=== PATIENT | female | born 1960 | race Caucasian/White ===

== ENCOUNTER → 2016-10-01 | Outpatient (CLI) | payer MEDICARE ==
--- NOTE | 2016-10-02 09:35 | MAM ---
History: Well woman exam. Date of exam: 10/01/2016 Services provided: Bilateral full field digital screening mammography. CAD, the images were reviewed with R2 computer aided detection. FINDINGS: Glandular tissue is scattered glandular contour. Study is compared with exam from 2015. Patient has definitely benign and scattered calcifications bilaterally, grossly stable since the more remote study. No architectural distortion or dominant mass. No new clustered microcalcifications. IMPRESSION: Benign exam Recommendation: Routine annual mammography BIRAD CATEGORY: 2 BENIGN Electronically signed by: Rain Cortés MD 10/02/2016 9:34 AM CDT
== END ==
LOC: MAMMO 14:00
PROVIDERS: ATTEND Nurse Practitioner Family
DX: Z12.31 Encounter for screening mammogram for malignant neoplasm of breast (principal)

== ENCOUNTER → 2016-10-18 | Outpatient (CLI) | payer MEDICARE | END | disposition home or self-care (01) | LOC: YCFC.O 14:31 | PROVIDERS: ATTEND Nurse Practitioner Family | DX: E11.65 Type 2 diabetes mellitus with hyperglycemia (principal) ==

== ENCOUNTER → 2017-01-07 | Outpatient (CLI) | payer MEDICARE ==
--- NOTE | 2017-01-07 16:14 | RAD ---
EXAM DESCRIPTION: Chest,2 Views CLINICAL HISTORY: PRE SURGERY EVALUATION COMPARISON: July 15, 2016 TECHNIQUE: PA/lateral FINDINGS: The lungs are well expanded and clear. No infiltrates or effusions or masses are noted. The heart is normal in size and shape with no evidence of vascular congestion. The joseph and mediastinum demonstrate normal contours. The bony spine and chest wall is normal for age in appearance. IMPRESSION: Normal chest, two views Electronically signed by: Ayden Rogesr MD 01/07/2017 4:11 PM CDT
== END ==
LOC: RESP 09:55
PROVIDERS: ATTEND Nurse Practitioner Family
DX: Z01.818 Encounter for other preprocedural examination (principal); E11.9 Type 2 diabetes mellitus without complications; I10 Essential (primary) hypertension

== ENCOUNTER 2017-02-04 06:15 | Inpatient (IN) | payer MEDICARE ==
--- NOTE | 2017-02-03 08:59 | HP ---
CHIEF COMPLAINT: Right knee pain. HISTORY OF PRESENT ILLNESS: Araceli is a 55-year-old female with a history of severe knee pain that has been getting progressively worse. She has to walk with an assistive device because of the pain. The pain she has has limited her daily activities. Because of her failure of conservative measures, she has requested operative intervention. After discussing the risks, benefits and alternatives to operative intervention, the patient has given informed consent. PAST SURGICAL HISTORY: 1. Tonsillectomy. MEDICATIONS: 1. Metformin. 2. Carvedilol. 3. Lisinopril. 4. Lovastatin. 5. Calcium. 6. Meloxicam. 7. Glyburide. ALLERGIES: NO KNOWN DRUG ALLERGIES. CODE STATUS: Full code. IMMUNIZATIONS: She is deficient on her tetanus. Otherwise, up to date. SOCIAL HISTORY: The patient does not drink, smoke or use any illicit drugs. FAMILY HISTORY: None pertinent to today's complaint. REVIEW OF SYSTEMS: Negative except as indicated in the History of Present Illness. PHYSICAL EXAMINATION: VITAL SIGNS: Blood pressure 114/70. Pulse 76. Height 5'9". Weight 194. MENTAL STATUS: The patient is awake, alert, and is able to give a good history and participate in the physical. The patient is oriented to person, place and time. SKIN: Normal tone and turgor. HEENT: Normocephalic, atraumatic. Pupils equal, round and reactive. Mucosal membranes are moist. NECK: Normal range of motion. No thyromegaly, no lymphadenopathy. CHEST: Normal respiratory excursion. CARDIAC: Regular rate and rhythm. No murmurs, rubs or gallops. MUSCULOSKELETAL: The bilateral upper extremities show full active range of motion without significant pain. She has intact sensation throughout and they are warm and well perfused. She has no crepitus with range of motion. Strength is 5/5. There is no deformity. The left lower extremity shows pain with palpation over both the medial and lateral joint-lines. She has pain with range of motion as well as crepitus, but maintains full extension with flexion to about 120 degrees. Strength is 5/5. She has a slight varus deformity. The right lower extremity shows full range of motion of the hip. Sensation is intact throughout the extremity. There is slight varus deformity at the knee. She has no varus/valgus or anterior/posterior laxity. Sensation is intact. Strength is 5/5. IMAGING: X-rays show severe osteoarthritis of the knee. ASSESSMENT: 1. Osteoarthritis of the knee. PLAN: The plan at this point is for total knee arthroplasty. She has failed conservative measures. We have discussed the risks, benefits, and alternatives to operative therapy and the patient has given informed consent for total knee arthroplasty. [facility][id number] [facility]
[~2017-02-04 06:15] MED LIST: LACTATED RINGERS 1,000 ML ONE; SODIUM CHL 0.9% 100ML MINI-BAG 100 ML IVPB ONE; SODIUM CHLORIDE 0.9% 100ML 100 ML IVPB ONE; SODIUM CHLORIDE 0.9% 250ML 250 ML ONE; TRANEXAMIC ACID 1,000 MG/10 ML VIAL ONE; VANCOMYCIN HCL INJ 1,000 MG VIAL IVPB ONE; ceFAZolin SODIUM 1 GM VIAL ONE
[2017-02-04] MEDS ORDERED: ceFAZolin SODIUM 1 GM VIAL ONE ×3 (06:25→20:52)
[2017-02-04] MEDS ORDERED: ACETAMINOPHEN IV 1000MG 100 ML ONE (06:28)
[2017-02-04] MEDS ORDERED: MIDAZOLAM INJ 5 MG/5 ML VIAL ONE (06:28)
[2017-02-04] MEDS ORDERED: MORPHINE SULFATE *EPIDURAL* 0.5 MG/ML VIAL ONE (06:28)
[2017-02-04] MEDS ORDERED: fentaNYL CITRATE INJ 50 MCG/ML AMP ONE (06:29)
[2017-02-04] MEDS ORDERED: TRANEXAMIC ACID 1,000 MG/10 ML VIAL IV ONE (06:40)
[2017-02-04] MEDS ORDERED: BENZOCAINE-MENTH LOZ (CEPACOL) 1 EA LOZ MT PRN (06:42)
[2017-02-04] MEDS ORDERED: CYCLOBENZAPRINE HCL 10 MG TAB PO PRN (06:42)
[2017-02-04] MEDS ORDERED: SODIUM CHLORIDE 0.9% (FLUSH) 10 ML SYG IV PRN (06:42)
[2017-02-04] MEDS ORDERED: BISACODYL SUPPOSITORY 10 MG PR PRN (06:42)
[2017-02-04] MEDS ORDERED: ACETAMINOPHEN 500 MG TAB PO PRN (06:42)
[2017-02-04] MEDS ORDERED: ZOLPIDEM TARTRATE 5 MG TAB PO PRN (06:42)
[2017-02-04] MEDS ORDERED: ONDANSETRON INJ 4 MG/2 ML VIAL IV PRN (06:42)
[2017-02-04] MEDS ORDERED: ACETAMINOPHEN 325 MG TAB PO PRN (06:42)
[2017-02-04] MEDS ORDERED: MORPHINE SULFATE INJ 10 MG/ML VIAL IV PRN (06:42)
[2017-02-04] MEDS ORDERED: TEMAZEPAM 15 MG CAP PO PRN (06:42)
[2017-02-04] MEDS ORDERED: PROMETHAZINE HCL INJ 12.5 MG in SODIUM CHLORIDE 0.9% 50ML 50 ML IVPB PRN (06:42)
[2017-02-04] MEDS ORDERED: MORPHINE SULFATE INJ 10 MG/ML VIAL IM PRN (06:42)
[2017-02-04] MEDS ORDERED: PROMETHAZINE HCL INJ 25 MG in SODIUM CHLORIDE 0.9% 50ML 50 ML IVPB PRN (06:42)
[2017-02-04] MEDS ORDERED: NALOXONE HCL INJ 0.4 MG/ML VIAL IV PRN (06:42)
[2017-02-04] MEDS ORDERED: HYDROcodone 5MG/APAP 325MG 1 EA TAB PO PRN (06:42)
[2017-02-04] MEDS ORDERED: HYDROcodone 10MG/APAP 325MG 1 EA TAB PO PRN (06:42)
[2017-02-04] MEDS ORDERED: MAGNESIUM HYDROXIDE 30 ML UD PO PRN (06:42)
[2017-02-04] MEDS ORDERED: TRANEXAMIC ACID INJ 1,000 MG in SODIUM CHLORIDE 0.9% 100ML 100 ML IVPB ONE (06:42)
[2017-02-04] MEDS ORDERED: ALUMINUM & MAGNESIUM HYDROXIDE 30 ML UD PO PRN (06:42)
[2017-02-04] MEDS ORDERED: DEX 5% W/NACL 0.45% 1000ML 1,000 ML IVS PRN (06:42)
[2017-02-04] MEDS ORDERED: MORPHINE PCA 1 MG/ML 100ML 1 BAG in PREMIX BAG 1 BAG IVPB SCH (07:00)
[2017-02-04] MEDS: ceFAZolin SODIUM 1 GM VIAL ONE ×2 (07:53→09:00)
[2017-02-04] MEDS: BUPIVACAINE 0.25% W/EPI 50 ML VIAL INJ ONE ×2 (07:54→09:19)
[2017-02-04] MEDS: VANCOMYCIN HCL INJ 1,000 MG VIAL IVPB ONE ×2 (07:54→09:00)
[2017-02-04] MEDS ORDERED: ROCURONIUM BROMIDE 10 MG/ML VIAL ONE (07:56)
[2017-02-04] MEDS ORDERED: ELECTROLYTE-A 1,000 ML IVS ONE (08:34)
[2017-02-04] MEDS ORDERED: SUGAMMADEX SODIUM 200 MG/2 ML VIAL IV ONE (08:34)
[2017-02-04] MEDS ORDERED: MORPHINE PCA 1 MG/ML 100 ML BAG IVPB ONE (09:48)
[2017-02-04] MEDS ORDERED: PROPOFOL 200 MG/20 ML VIAL IV ONE (10:00)
[2017-02-04] MEDS ORDERED: ePHEDrine SULF 50 MG/ML IV ONE (10:00)
[2017-02-04] MEDS ORDERED: diphenhydrAMINE HCL 50 MG/ML VIAL IV ONE (10:00)
[2017-02-04] MEDS ORDERED: GLYCOPYRROLATE 0.2 MG/ML VIAL IV ONE (10:00)
[2017-02-04] MEDS ORDERED: raNITIdine HCL INJ 25 MG/ML VIAL IV ONE (10:00)
[2017-02-04] MEDS ORDERED: DEXAMETHASONE INJ 10 MG/ML VIAL IV ONE (10:00)
[2017-02-04] MEDS ORDERED: METOCLOPRAMIDE HCL INJ 10 MG/2 ML VIAL IV ONE (10:00)
[2017-02-04] MEDS ORDERED: SODIUM CHLORIDE 0.9% 50 ML VIAL INJ ONE (10:00)
[2017-02-04] MEDS ORDERED: LIDOCAINE 1% 10 ML VIAL INJ ONE (10:00)
--- NOTE | 2017-02-04 10:08 | RAD ---
EXAM DESCRIPTION: Knee,Right 2 or More Views CLINICAL HISTORY: 56 years, Female, TKA COMPARISON: April 01, 2016 FINDINGS: Interval total knee arthroplasty. Alignment appears satisfactory. No findings of hardware failure. Some mild soft tissue swelling anterior to the knee. IMPRESSION: Satisfactory appearance following total knee arthroplasty. No findings of hardware failure. Soft tissue swelling anterior to the knee Electronically signed by: Juan Abdul MD 02/04/2017 10:07 AM CDT
[2017-02-04] MEDS: MAGNESIUM OXIDE 400 MG TAB PO SCH (10:30)
[2017-02-04] MEDS ORDERED: DEXTROSE 50% 25 GM/50 ML SYG IV PRN (16:26)
[2017-02-04] MEDS ORDERED: GLUCAGON INJ 1 MG VIAL SUBCU PRN (16:26)
[2017-02-04] MEDS ORDERED: IBUPROFEN 200 MG TAB PO PRN (16:34)
[2017-02-04] MEDS ORDERED: SODIUM CHLORIDE 0.9% 100ML 100 ML IVPB ONE ×2 (16:36→20:52)
[2017-02-04] MEDS: SODIUM CHLORIDE 0.45% 1000ML 1,000 ML IVS PRN (16:56)
[2017-02-04] MEDS: INSULIN LISPRO 100 UNITS/ML PEN SUBCU SCH ×2 (16:57→21:30)
[2017-02-04] MEDS: ceFAZolin SODIUM 2 GM in SODIUM CHLORIDE 0.9% 100ML 100 ML IVPB SCH ×2 (16:58→23:32)
[2017-02-04] MEDS: metFORMIN XR 500 MG TAB.ER.24 PO SCH (16:58)
[2017-02-04] MEDS: CARVEDILOL 3.125 MG TAB PO SCH (16:58)
[2017-02-04] MEDS: IV SET AND CAP CHANGE INJ INJ SCH (17:00)
[2017-02-04] MEDS ORDERED: SODIUM CHLORIDE 0.9% 250ML 250 ML ONE (18:07)
[2017-02-04] MEDS ORDERED: VANCOMYCIN HCL INJ 1,000 MG VIAL IVPB ONE (18:07)
--- NOTE | 2017-02-04 18:19 | CONS ---
SUPERVISING PHYSICIAN: Ayden Hurt MD DATE OF CONSULTATION: 02/04/17 CHIEF COMPLAINT: Right knee pain. HISTORY OF PRESENT ILLNESS: This is a 56-year-old, female patient with a history of severe right knee pain that has progressively worsened over the last few years. She has had to use assistive devices due to the pain. She has tried conservative measures and her pain has been debilitating and it limits her daily activities. After failure of all these conservative measures, she had requested Dr. Jose Carlos Ambriz, orthopedic surgeon, for operative intervention. I am seeing her in her postoperative phase after right total knee arthroplasty. PAST MEDICAL HISTORY: 1. Diabetes mellitus. 2. Hypertension. 3. Hyperlipidemia. 4. Osteoarthritis. PAST SURGICAL HISTORY: 1. Tonsillectomy. 2. Hysterectomy. OUTPATIENT MEDICATIONS: Per the EMR and awaiting verification. ALLERGIES: NO KNOWN DRUG ALLERGIES. SOCIAL HISTORY: She denies any tobacco use. She drinks an occasional alcoholic beverage. She is retired. She has never been . She has no children. REVIEW OF SYSTEMS: GENERAL: Denies fever, fatigue or weight changes. HEENT: Denies sinus symptoms, ear pain, vision changes or sore throat. RESPIRATORY: Denies wheezing, coughing or shortness of breath. CARDIAC: Denies chest pain, palpitations or tachycardia. GASTROINTESTINAL: Denies nausea, vomiting, diarrhea, constipation or abdominal pain. EXTREMITIES: As per history of present illness. NEUROLOGIC: Denies headache, dizziness, or seizures. GENITOURINARY: Denies hematuria, dysuria or polyuria. PHYSICAL EXAMINATION: VITAL SIGNS: Afebrile. Heart rate 69. Blood pressure 85/53. Respiratory rate 16. O2 saturation 94%. GENERAL: This is a 56-year-old, female patient who is lying in her hospital bed. She is in no acute distress. HEENT: Normocephalic, atraumatic. Pupils are equal and reactive. Oropharynx is clear. Oral mucous membranes are slightly dry. NECK: Supple without mass. RESPIRATORY: Clear to auscultation bilaterally. CHEST: There is equal rise and fall of the chest with inspiration and expiration. CARDIOVASCULAR: Regular rate and rhythm. ABDOMEN: Soft, nondistended, nontender. Bowel sounds are positive, somewhat hypoactive. EXTREMITIES: There is an Iceman in place to her right knee. Her bilateral pedal pulses are palpable at +2. No cyanosis or edema. NEUROLOGIC: Awake, lethargic and oriented times three. LABORATORY: Laboratories and films are as per the EMR. ASSESSMENT: 1. Osteoarthritis of the right knee status post total knee arthroplasty per Dr. Jose Carlos Ambriz, orthopedic surgeon, postoperative day 0. 2. Hypertension. 3. Diabetes mellitus, type 2. 4. Hyperlipidemia. PLAN: We will continue present supportive care. Orthopedic issues will be per Dr. Ambriz. She will begin her physical therapy for strengthening and conditioning tomorrow with physical therapy. I have restarted her home medications. Encourage pulmonary good pulmonary hygiene. We will continue to monitor the patient closely and followup as needed. Dr. Hurt is the collaborating physician and available for consultation. . #[id number] [facility]
[2017-02-04] MEDS: VANCOMYCIN HCL INJ 1,000 MG in SODIUM CHLORIDE 0.9% 250ML 250 ML IVPB SCH (18:40)
[2017-02-04] MEDS ORDERED: LOVASTATIN 20 MG PO SCH (21:00)
[2017-02-04] MEDS: SIMVASTATIN 10 MG TAB PO SCH (21:24)
[2017-02-04] MEDS: ENOXAPARIN SODIUM 30 MG/0.3 ML SYG SUBCU SCH (21:25)
[2017-02-04] MEDS: DOCUSATE CALCIUM 240 MG CAP PO SCH (21:25)
[2017-02-04] MEDS ORDERED: diphenhydrAMINE HCL 25 MG CAP PO ONE (22:35)
[2017-02-05] MEDS ORDERED: SODIUM CHLORIDE 0.9% 250ML 250 ML ONE (05:21)
[2017-02-05] MEDS ORDERED: VANCOMYCIN HCL INJ 1,000 MG VIAL IVPB ONE (05:22)
[2017-02-05] MEDS: VANCOMYCIN HCL INJ 1,000 MG in SODIUM CHLORIDE 0.9% 250ML 250 ML IVPB SCH (06:28)
[2017-02-05] MEDS: INSULIN LISPRO 100 UNITS/ML PEN SUBCU SCH ×4 (07:31→21:09)
--- NOTE | 2017-02-05 08:25 | PN ---
DATE: 02/04/17 SUBJECTIVE: Ms. Barnard is doing well right now and has good pain control. OBJECTIVE: Afebrile. Vital signs stable. Dressing is clean, dry, and intact. ASSESSMENT: Status post total knee arthroplasty. PLAN: The plan is to begin CPM today and we will begin weight-bearing as tolerated on postoperative day 1. #[id number] [facility]
--- NOTE | 2017-02-05 08:27 | PN ---
DATE: 02/05/17 SUBJECTIVE: She is doing well with regard to her pain. She is without significant complaint this morning. OBJECTIVE: Afebrile. Vital signs stable. Dressing is clean, dry, and intact. ASSESSMENT: Status post total knee arthroplasty. PLAN: The plan is to begin weight-bearing as tolerated today. [facility][id number] [facility]
[2017-02-05] MEDS: metFORMIN XR 500 MG TAB.ER.24 PO SCH ×2 (08:30→17:47)
--- NOTE | 2017-02-05 08:38 | OP ---
DATE OF PROCEDURE: 02/04/17 PREOPERATIVE DIAGNOSIS: 1. Osteoarthritis of the knee. POSTOPERATIVE DIAGNOSIS: 1. Osteoarthritis of the knee. PROCEDURE: 1. Total knee arthroplasty. SURGEON: Jose Carlos Ambriz MD. PIE BOTTOMER: Gonzales Field CST, SA-C. ANESTHESIA: General. COMPLICATIONS: None. FINDINGS: Severe osteoarthritis of the knee. INDICATION: Ms. Barnard has a long history of severe knee pain. She has tried conservative measures, however, has failed to gain relief. Because of her ongoing pain and failure of conservative measures, she has requested operative intervention. After discussing the risks, benefits and alternatives to operative intervention, the patient has given informed consent for total knee arthroplasty. PROCEDURE: The patient was brought to the Operating Room and placed in supine position. General anesthesia was induced and the patient's leg was sterilely prepped and draped. Following prepping and draping, the distal femur was exposed and using an intramedullary guide, the distal femoral cut was made. The appropriate sized cutting block was measured, pinned into place, and the anterior, posterior, and chamfer cuts were made. The ACL was transected and the tibia was subluxed. Both the medial and lateral menisci were removed. An intramedullary guide was used to make the proximal tibial cut. The appropriate sized base plate was placed and a trial polyethylene was placed. The trial femur was placed, the knee was reduced, and the knee was taken through a range of motion. The knee was stable in anterior, posterior, varus and valgus stress. The patella tracked anatomically without evidence of subluxation or dislocation. After trialing, the trial components were removed and the bony surfaces were thoroughly irrigated with saline. Following irrigation, the surfaces were dried and the final components were cemented into place. The excess cement was removed and the remaining cement was allowed to cure. The knee was again taken through a range of motion to confirm stability. The wound was then irrigated with saline and closure was performed using PDS to approximate the arthrotomy followed by closure of the subcutaneous tissues with a combination of running and interrupted Monocryl sutures. Sterile dressing was placed. The patient was awoken from anesthesia and taken to Recovery. POSTOPERATIVE INSTRUCTIONS: The patient will be weight-bearing as tolerated on postoperative day 1. COMPONENTS: [employer] Triathlon knee, size 4 femur, size 4 tibia, 11 mm insert. #[id number] [facility]
[2017-02-05] MEDS ORDERED: SODIUM CHLORIDE 0.9% 100ML 100 ML IVPB ONE (08:56)
[2017-02-05] MEDS ORDERED: ceFAZolin SODIUM 1 GM VIAL ONE (08:56)
[2017-02-05] MEDS: MAGNESIUM OXIDE 400 MG TAB PO SCH (09:48)
[2017-02-05] MEDS: ceFAZolin SODIUM 2 GM in SODIUM CHLORIDE 0.9% 100ML 100 ML IVPB SCH (09:50)
[2017-02-05] MEDS: LISINOPRIL 10 MG TAB PO SCH (09:52)
[2017-02-05] MEDS: CARVEDILOL 3.125 MG TAB PO SCH ×3 (09:52→17:50)
[2017-02-05] MEDS: ENOXAPARIN SODIUM 30 MG/0.3 ML SYG SUBCU SCH ×2 (09:54→21:09)
[2017-02-05] MEDS: SODIUM CHLORIDE 0.45% 1000ML 1,000 ML IVS PRN (20:18)
--- NOTE | 2017-02-05 21:05 | PN ---
DATE: 02/05/17 SUPERVISING PHYSICIAN: Ayden Hurt M.D. SUBJECTIVE: The patient is sitting up in her hospital bed. She is in no acute distress. She has no complaints at this time. She did say that she has had no problems with her physical therapy. OBJECTIVE: VITAL SIGNS: T max 24 hours is 99.2, heart rate 70, blood pressure 134/82, respiratory rate 18, O2 sat 92% on room air. RESPIRATORY: Clear to auscultation bilaterally. CARDIAC: Regular rate and rhythm. ABDOMEN: Soft, nondistended, non-tender. Bowel sounds are positive. EXTREMITIES: Bilateral pedal pulses are palpable at +2. She has a dressing to her right knee that is dry and intact. NEUROLOGIC: She is awake, alert and oriented times three. LABORATORY: Hemoglobin 11.3, hematocrit 34.2. Blood glucose has ranged between 99 and 167. All other labs and films have been reviewed via the EMR. ASSESSMENT: 1. Osteoarthritis of the right knee status post total knee arthroplasty per Dr. Jose Carlos Ambriz, orthopedic surgeon, postoperative day #1. 2. Hypertension. 3. Diabetes mellitus type 2. 4. Hyperlipidemia. PLAN: We will continue present supportive care. Encouraged good pulmonary hygiene, especially given that she had a low grade temperature earlier today. She will continue with her physical therapy for strengthening and rehabilitation. We will continue to monitor closely and follow as needed. Dr. Hurt is the collaborating physician and available for consultation. #[id number] [facility]
[2017-02-05] MEDS: SIMVASTATIN 10 MG TAB PO SCH (21:09)
[2017-02-05] MEDS: DOCUSATE CALCIUM 240 MG CAP PO SCH (21:09)
[2017-02-06] MEDS: traMADol HCL 50 MG TAB PO PRN ×2 (06:11→14:52)
[2017-02-06] MEDS: CARVEDILOL 3.125 MG TAB PO SCH ×2 (07:27→17:41)
[2017-02-06] MEDS: INSULIN LISPRO 100 UNITS/ML PEN SUBCU SCH ×4 (07:31→20:59)
[2017-02-06] MEDS: metFORMIN XR 500 MG TAB.ER.24 PO SCH ×2 (07:37→17:41)
[2017-02-06] MEDS: LISINOPRIL 10 MG TAB PO SCH (07:38)
[2017-02-06] MEDS: ENOXAPARIN SODIUM 30 MG/0.3 ML SYG SUBCU SCH ×2 (08:47→21:00)
[2017-02-06] MEDS: MAGNESIUM OXIDE 400 MG TAB PO SCH (08:47)
[2017-02-06] MEDS: SODIUM CHLORIDE 0.9% (FLUSH) 10 ML SYG IV SCH ×2 (08:48→21:00)
[2017-02-06] MEDS ORDERED: IPRATROPIUM/ALBUTEROL 3 ML VIAL NEB PRN (09:54)
[2017-02-06] MEDS: IPRATROPIUM/ALBUTEROL 3 ML VIAL NEB SCH ×4 (10:57→20:51)
--- NOTE | 2017-02-06 18:12 | PN ---
DATE: 02/06/17 SUPERVISING PHYSICIAN: Ayden Hurt M.D. SUBJECTIVE: The patient is lying in her hospital bed. She is tired. She said she did not have a good day but she is feeling better this evening. Earlier today she had a period that she was shortness of breath and had weakness during her physical therapy, but her afternoon session was much better. OBJECTIVE: T max 24 hours is 100, heart rate 97, blood pressure 124/78, respiratory rate 18, O2 sat this morning dropped into the 80s but now is up to 97%. RESPIRATORY: Scattered rhonchi throughout, somewhat diminished at the bases. CARDIAC: Regular rate and rhythm. ABDOMEN: Soft, nondistended, non- tender. Bowel sounds are positive. EXTREMITIES: Bilateral pedal pulses are palpable +2. The dressing to her right knee is dry and intact. NEUROLOGIC: She is awake, alert and oriented times three. LABORATORY: There are no labs and films to report at this time. ASSESSMENT: 1. Osteoarthritis of the right knee status post total knee arthroplasty per Dr. Jose Carlos Ambriz, orthopedic surgeon, postoperative day #2. 2. Hypertension. 3. Diabetes mellitus type 2. 4. Hyperlipidemia. PLAN: We will continue present supportive care. I have ordered EzPAP plus breathing treatments and encouraged good pulmonary toilet. She will continue with her strengthening and conditioning per Physical Therapy. Orthopedic issues will be per Dr. Ambriz. I spoke with Claudette Jauregui, our Bromination Equipment Operator, and we will discuss with Physical Therapy if the patient may need to have Swing Bed admission for strengthening and conditioning. Until then, we will continue to monitor closely and follow as needed. Dr. Hurt is the collaborating physician and available for consultation. #[id number] [facility]
[2017-02-06] MEDS: DOCUSATE CALCIUM 240 MG CAP PO SCH (21:00)
[2017-02-06] MEDS: SIMVASTATIN 10 MG TAB PO SCH (21:00)
[2017-02-07] MEDS: INSULIN LISPRO 100 UNITS/ML PEN SUBCU SCH ×2 (07:29→11:24)
[2017-02-07] MEDS: CARVEDILOL 3.125 MG TAB PO SCH (08:18)
[2017-02-07] MEDS: LISINOPRIL 10 MG TAB PO SCH (08:18)
[2017-02-07] MEDS: MAGNESIUM OXIDE 400 MG TAB PO SCH (08:18)
[2017-02-07] MEDS: metFORMIN XR 500 MG TAB.ER.24 PO SCH (08:18)
[2017-02-07] MEDS: SODIUM CHLORIDE 0.9% (FLUSH) 10 ML SYG IV SCH (08:19)
[2017-02-07] MEDS: IV SET AND CAP CHANGE INJ INJ SCH (08:23)
[2017-02-07] MEDS: IPRATROPIUM/ALBUTEROL 3 ML VIAL NEB SCH ×2 (08:30→12:50)
[2017-02-07] MEDS: traMADol HCL 50 MG TAB PO PRN (09:22)
[2017-02-07] MEDS: ENOXAPARIN SODIUM 30 MG/0.3 ML SYG SUBCU SCH (09:22)
--- NOTE | 2017-02-07 09:37 | PN ---
DATE: 02/06/17 SUBJECTIVE: Araceli is doing pretty well. She is a little bit sleepy this morning , but otherwise her pain seems to be well controlled. OBJECTIVE: Afebrile. Vital signs stable. Wound is clean. There are no signs or symptoms of infection. ASSESSMENT: Status post total knee arthroplasty. PLAN: Continue with weight-bearing as tolerated. We will continue with CPM as well. [facility][id number] [facility]
--- NOTE | 2017-02-07 09:38 | PN ---
DATE: 02/07/17 SUBJECTIVE: She is doing well and participating in physical therapy right now. OBJECTIVE: Afebrile. Vital signs stable. Wound is clean. There are no signs or symptoms of infection. ASSESSMENT: Status post total knee arthroplasty. PLAN: Continue with weight-bearing as tolerated and increase the CPM as tolerated. [facility][id number] [facility]
[2017-02-07 10:26] VITALS: BP 116/78
[2017-02-07 14:12] VITALS: TEMP 98.7; O2SAT 97
--- NOTE | 2017-02-07 19:01 | DS ---
SUPERVISING PHYSICIAN: Ayden Hurt M.D. DISCHARGE DIAGNOSIS: 1. Osteoarthritis of the right knee status post total knee arthroplasty per Dr. Jose Carlos Ambriz, orthopedic surgeon, postoperative day #3. 2. Hypertension. 3. Diabetes mellitus type 2. 4. Hyperlipidemia. HISTORY OF PRESENT ILLNESS: This is a 56-year-old, female patient with a history of severe right knee pain that has progressively worsened over the last few years. She has had to use assistive devices due to the pain. She has tried conservative measures and her pain has been debilitating and it limits her daily activities. After failure of all these conservative measures, she had requested Dr. Jose Carlos Ambriz, orthopedic surgeon, for operative intervention. I am seeing her in her postoperative phase after right total knee arthroplasty. HOSPITAL COURSE: Postoperatively the patient did well. On the second day after her surgery, she had some desaturations and was very weak. She had difficulty completing her physical therapy. Aggressive pulmonary hygiene was ordered as well as some breathing treatments. Her vital signs were stable. Today, she progressed without problems with her strengthening and rehabilitation with Physical Therapy. It was recommended that she be discharged from Acute Care and readmitted to Swing Bed for strengthening and conditioning per Physical Therapy. DISCHARGE PLAN: The patient will be discharged from Acute Care to Swing Bed for strengthening and conditioning per Physical Therapy. We will continue her present medications, including 8 additional days of Xarelto 10 mg p.o. She will have the routine Swing Bed orders. She has a followup with Dr. Ambriz in a couple of weeks. DISCHARGE MEDICATIONS: 1. Lovastatin. 2. Lisinopril. 3. Carvedilol. 4. Albuterol sulfate. 5. Metformin. 6. Cyclobenzaprine. 7. DuoNeb. 8. Xarelto. Dr. Hurt is the collaborating physician available for consultation. #[id number] [facility]
[2017-02-07] MEDS ORDERED: MAGNESIUM HYDROXIDE 30 ML UD PO ONE (21:00)
[2017-02-07] MEDS ORDERED: BISACODYL SUPPOSITORY 10 MG PR ONE (21:00)
== END 2017-02-07 15:11 | disposition swing bed (61) | DRG 470 ==
LOC: AMB 06:15 → MS 10:27
PROVIDERS: ADMIT Orthopaedic Surgery; ATTEND Orthopaedic Surgery
PROC: 0SRC0J9 Replacement of Right Knee Joint with Synthetic Substitute, Cemented, Open Approach (ICD-10-PCS; principal; 2017-02-04 07:05)
DX: M17.11 Unilateral primary osteoarthritis, right knee (principal); E11.9 Type 2 diabetes mellitus without complications; I10 Essential (primary) hypertension; E78.5 Hyperlipidemia, unspecified; M19.90 Unspecified osteoarthritis, unspecified site; Z79.84 Long term (current) use of oral hypoglycemic drugs; Z79.01 Long term (current) use of anticoagulants; Z79.899 Other long term (current) drug therapy

== ENCOUNTER 2017-02-07 15:35 | Inpatient (IN) | payer MEDICARE ==
[2017-02-07] MEDS ORDERED: MAGNESIUM HYDROXIDE 30 ML UD PO PRN (15:44)
[2017-02-07] MEDS ORDERED: SODIUM PHOS/BIPHOS ENEMA ADULT 133 ML BTTL PR PRN (15:44)
[2017-02-07] MEDS ORDERED: DEXTROSE 50% 25 GM/50 ML SYG IV PRN (17:04)
[2017-02-07] MEDS ORDERED: GLUCAGON INJ 1 MG VIAL SUBCU PRN (17:04)
[2017-02-07] MEDS ORDERED: ALBUTEROL SULFATE 2.5 MG/3 ML VIAL NEB PRN (17:06)
[2017-02-07] MEDS ORDERED: CARVEDILOL 3.125 MG TAB ONE (17:23)
[2017-02-07] MEDS: NON-FORMULARY MEDICATION 1 EA MIS (Carvedilol [Carvedilol] 6.25 MG) PO SCH (17:28)
[2017-02-07] MEDS: INSULIN LISPRO 100 UNITS/ML PEN SUBCU SCH ×2 (17:29→20:57)
--- NOTE | 2017-02-07 17:44 | HP ---
SUPERVISING PHYSICIAN: Ayden Hurt M.D. CHIEF COMPLAINT: Postoperative day #3 for right total knee arthroplasty. HISTORY OF PRESENT ILLNESS: This is a 56 year-old female patient with a history of severe right knee pain that had progressively worsened over the last few years. She had to use assistive devices due to the pain. She tried conservative measures and the pain increased to the point that it was debilitating and limiting her daily activities. She requested Dr. Jose Carlos Ambriz, orthopedic surgeon, for operative intervention. Her right total knee arthroplasty was done on 02/04/17. During her postoperative phase, she actually did well during surgery, but postoperatively she had some difficulty on day 1. She had a desaturation into the 80s and she was not optimized with her physical therapy. Aggressive pulmonary hygiene was ordered, including breathing treatments and now she has progressed well today with her strengthening and conditioning per Physical Therapy, but she was discharged from the Acute Care setting and she is being admitted as a Swing Bed patient for strengthening and conditioning per Physical Therapy. PAST MEDICAL HISTORY: 1. Diabetes mellitus. 2. Hypertension. 3. Hyperlipidemia. 4. Osteoarthritis. PAST SURGICAL HISTORY: 1. Tonsillectomy. 2. Hysterectomy. OUTPATIENT MEDICATIONS: Per the EMR and awaiting verification. ALLERGIES: NO KNOWN DRUG ALLERGIES. SOCIAL HISTORY: She denies any tobacco use. She drinks an occasional alcoholic beverage. She is retired. She has never been . She has no children. REVIEW OF SYSTEMS: GENERAL: Denies fever, fatigue or weight changes. HEENT: Denies sinus symptoms, ear pain, vision changes or sore throat. RESPIRATORY: Denies wheezing, coughing or shortness of breath. CARDIAC: Denies chest pain, palpitations or tachycardia. GASTROINTESTINAL: Denies nausea, vomiting, diarrhea, constipation or abdominal pain. EXTREMITIES: As per history of present illness. NEUROLOGIC: Denies headache, dizziness, or seizures. GENITOURINARY: Denies hematuria, dysuria or polyuria. PHYSICAL EXAMINATION: VITAL SIGNS: Temperature 98.2, pulse rate 72, blood pressure 56060, respiratory rate 18, O2 sat is 97% on 2 liters nasal cannula. GENERAL: This is a 56 year-old female patient who is lying in her hospital bed. She is in no acute distress. HEENT: Normocephalic and atraumatic. Pupils are equal and reactive. Oropharynx is clear. NECK: Supple without mass. CHEST: Clear to auscultation bilaterally. There is equal rise and fall of the chest with inspiration and expiration. CARDIOVASCULAR: Regular rate and rhythm. ABDOMEN: Soft, nondistended, non-tender. Bowel sounds are positive. EXTREMITIES: No cyanosis, clubbing or edema. She does have a dressing to her right knee that is dry and intact. Her bilateral pedal pulses are palpable at + 2. NEUROLOGIC: She is awake, alert and oriented times three. LABORATORY: There are no labs and films to report at this time. ASSESSMENT: 1. Osteoarthritis of the right knee status post total knee arthroplasty per Dr. Jose Carlos Ambriz, orthopedic surgeon, postoperative day #3. 2. Hypertension. 3. Diabetes mellitus type 2. 4. Hyperlipidemia. PLAN: We will admit the patient to Swing Bed. Her orthopedic issues will be per Dr. Ambriz, orthopedic surgeon. She will continue strengthening and conditioning with Physical Therapy. I have restarted her home medications. I will start the sliding scale insulin per protocol. She is to have 8 additional days of Xarleto starting tomorrow. Otherwise we will continue to monitor the patient closely and follow as needed. Dr. Hurt is the collaborating physician and available for consultation. #[id number] [facility]
[2017-02-07] MEDS: SIMVASTATIN 10 MG TAB PO SCH (20:57)
[2017-02-07] MEDS ORDERED: metFORMIN XR 500 MG TAB.ER.24 PO SCH (21:00)
[2017-02-07] MEDS ORDERED: LOVASTATIN 20 MG PO SCH (21:00)
[2017-02-07] MEDS: IPRATROPIUM/ALBUTEROL 3 ML VIAL NEB SCH (21:02)
[2017-02-08] MEDS ORDERED: LISINOPRIL 10 MG TAB ONE (07:04)
[2017-02-08] MEDS ORDERED: CARVEDILOL 3.125 MG TAB ONE (07:05)
[2017-02-08] MEDS: INSULIN LISPRO 100 UNITS/ML PEN SUBCU SCH ×4 (07:14→21:16)
[2017-02-08] MEDS: NON-FORMULARY MEDICATION 1 EA MIS (Carvedilol [Carvedilol] 6.25 MG) PO SCH (07:15)
[2017-02-08] MEDS ORDERED: NON-FORMULARY MEDICATION 1 EA MIS (Lisinopril [Lisinopril] 20 MG) PO SCH (07:30)
[2017-02-08] MEDS: IPRATROPIUM/ALBUTEROL 3 ML VIAL NEB SCH ×4 (08:50→19:40)
[2017-02-08] MEDS ORDERED: RIVAROXABAN 10 MG TAB PO SCH (09:00)
[2017-02-08] MEDS: DOCUSATE SODIUM 100 MG CAP PO SCH (09:30)
[2017-02-08] MEDS: RIVAROXABAN 10 MG TAB PO SCH (09:31)
--- NOTE | 2017-02-08 12:02 | PN ---
DATE: 02/08/17 SUBJECTIVE: Araceli is subjective doing well, although she is in bed using her CPM. She has only been up once today. OBJECTIVE: She is afebrile. Vital signs are stable. Wound is clean. There are no signs or symptoms of infection. ASSESSMENT: 1. Diagnostic procedures total knee arthroplasty. PLAN: I have encouraged Araceli to really get up and start doing quite a bit of walking today. She should continue with her CPM as she is right now, however I think it is important that she also really concentrate on walking. She can do that. Will continue to monitor her and discharge her. Put her on Swing Bed as appropriate. JACOBY
[2017-02-08] MEDS: metFORMIN XR 500 MG TAB.ER.24 PO SCH (16:57)
[2017-02-08] MEDS: CARVEDILOL 3.125 MG TAB PO SCH (16:57)
[2017-02-08] MEDS: SIMVASTATIN 10 MG TAB PO SCH (21:19)
[2017-02-09] MEDS: LISINOPRIL 10 MG TAB PO SCH (07:32)
[2017-02-09] MEDS: CARVEDILOL 3.125 MG TAB PO SCH ×2 (07:32→16:56)
[2017-02-09] MEDS: metFORMIN XR 500 MG TAB.ER.24 PO SCH ×2 (07:32→16:56)
[2017-02-09] MEDS: INSULIN LISPRO 100 UNITS/ML PEN SUBCU SCH ×4 (07:37→21:26)
[2017-02-09] MEDS: DOCUSATE SODIUM 100 MG CAP PO SCH (08:48)
[2017-02-09] MEDS: RIVAROXABAN 10 MG TAB PO SCH (08:48)
[2017-02-09] MEDS: IPRATROPIUM/ALBUTEROL 3 ML VIAL NEB SCH ×4 (08:55→20:40)
[2017-02-09] MEDS: CYCLOBENZAPRINE HCL 10 MG TAB PO PRN (12:53)
[2017-02-09] MEDS: SIMVASTATIN 10 MG TAB PO SCH (21:26)
[2017-02-10] MEDS: CARVEDILOL 3.125 MG TAB PO SCH ×2 (07:41→17:10)
[2017-02-10] MEDS: metFORMIN XR 500 MG TAB.ER.24 PO SCH ×2 (07:41→17:10)
[2017-02-10] MEDS: INSULIN LISPRO 100 UNITS/ML PEN SUBCU SCH ×4 (07:41→21:09)
[2017-02-10] MEDS: LISINOPRIL 10 MG TAB PO SCH (07:41)
[2017-02-10] MEDS: IPRATROPIUM/ALBUTEROL 3 ML VIAL NEB SCH ×4 (08:30→19:03)
[2017-02-10] MEDS: RIVAROXABAN 10 MG TAB PO SCH (09:12)
[2017-02-10] MEDS: DOCUSATE SODIUM 100 MG CAP PO SCH (09:12)
[2017-02-10] MEDS: CYCLOBENZAPRINE HCL 10 MG TAB PO PRN (19:36)
[2017-02-10] MEDS: SIMVASTATIN 10 MG TAB PO SCH (20:18)
[2017-02-10] MEDS: ACETAMINOPHEN 500 MG TAB PO PRN (22:17)
--- NOTE | 2017-02-11 01:30 | PCM.CORE ---
Physician DVT/VTE - Prophylaxis Currently: Patient already on anticoagulation therapy - Nurse DVT Assessment & Total Each Risk Factor Represents 5 Points: Hip,Pelvis,leg Fx <1month Each Risk Factor Represents 1 Point: Age 41-60 Each Risk Factor is 1 Point: Obesity (BMI >25) DVT Assessment Score: 7 - 5 or more Very High Risk Treatments: Early Ambulation *, Sequential Compression Device
[2017-02-11] MEDS: INSULIN LISPRO 100 UNITS/ML PEN SUBCU SCH ×4 (07:25→21:27)
[2017-02-11] MEDS: metFORMIN XR 500 MG TAB.ER.24 PO SCH ×2 (07:34→16:42)
[2017-02-11] MEDS: CARVEDILOL 3.125 MG TAB PO SCH ×2 (07:35→16:42)
[2017-02-11] MEDS: LISINOPRIL 10 MG TAB PO SCH (07:35)
[2017-02-11] MEDS: IPRATROPIUM/ALBUTEROL 3 ML VIAL NEB SCH ×4 (08:45→19:39)
[2017-02-11] MEDS: DOCUSATE SODIUM 100 MG CAP PO SCH (09:31)
[2017-02-11] MEDS: RIVAROXABAN 10 MG TAB PO SCH (09:31)
[2017-02-11] MEDS: SIMVASTATIN 10 MG TAB PO SCH (20:47)
[2017-02-11] MEDS: CYCLOBENZAPRINE HCL 10 MG TAB PO PRN (20:47)
[2017-02-12] MEDS: INSULIN LISPRO 100 UNITS/ML PEN SUBCU SCH ×4 (07:34→22:10)
[2017-02-12] MEDS: LISINOPRIL 10 MG TAB PO SCH (07:36)
[2017-02-12] MEDS: CARVEDILOL 3.125 MG TAB PO SCH ×2 (07:36→16:24)
[2017-02-12] MEDS: metFORMIN XR 500 MG TAB.ER.24 PO SCH ×2 (07:36→16:24)
[2017-02-12] MEDS: IPRATROPIUM/ALBUTEROL 3 ML VIAL NEB SCH ×4 (08:25→20:30)
[2017-02-12] MEDS: CYCLOBENZAPRINE HCL 10 MG TAB PO PRN ×2 (08:29→22:09)
[2017-02-12] MEDS: ACETAMINOPHEN 500 MG TAB PO PRN (08:31)
[2017-02-12] MEDS: RIVAROXABAN 10 MG TAB PO SCH (08:32)
[2017-02-12] MEDS: DOCUSATE SODIUM 100 MG CAP PO SCH (08:32)
--- NOTE | 2017-02-12 13:11 | PN ---
DATE: 02/12/17 SUBJECTIVE: She is doing better. She has been doing physical therapy as instructed and is standby assist right now. OBJECTIVE: Afebrile. Vital signs stable. Wound is clean. There are no signs or symptoms of infection. ASSESSMENT: Status post total knee arthroplasty. PLAN: We will continue with her Swing Bed status with weight-bearing as tolerated and continue with CPM. [facility][id number] [facility]
[2017-02-12] MEDS: SIMVASTATIN 10 MG TAB PO SCH (22:09)
[2017-02-13] MEDS: INSULIN LISPRO 100 UNITS/ML PEN SUBCU SCH ×2 (07:25→12:06)
[2017-02-13] MEDS: LISINOPRIL 10 MG TAB PO SCH (08:36)
[2017-02-13] MEDS: metFORMIN XR 500 MG TAB.ER.24 PO SCH (08:36)
[2017-02-13] MEDS: CARVEDILOL 3.125 MG TAB PO SCH (08:36)
[2017-02-13] MEDS: IPRATROPIUM/ALBUTEROL 3 ML VIAL NEB SCH ×2 (08:49→14:56)
[2017-02-13] MEDS: DOCUSATE SODIUM 100 MG CAP PO SCH (09:40)
[2017-02-13] MEDS: ACETAMINOPHEN 500 MG TAB PO PRN (09:40)
[2017-02-13] MEDS: RIVAROXABAN 10 MG TAB PO SCH (09:40)
[2017-02-13 10:54] VITALS: BP 120/81; TEMP 97.2; O2SAT 97
--- NOTE | 2017-02-13 13:52 | DS ---
SUPERVISING PHYSICIAN: Riley Garcia MD DISCHARGE DIAGNOSIS: 1. Osteoarthritis of the right knee status post total knee arthroplasty per Dr. Jose Carlos Ambriz, orthopedic surgeon, postoperative day #9. 2. Hypertension. 3. Diabetes mellitus, type 2. 4. Hyperlipidemia. HISTORY OF PRESENT ILLNESS: This is a 56 year-old female patient with a history of severe right knee pain that had progressively worsened over the last few years. She had to use assistive devices due to the pain. She tried conservative measures and the pain increased to the point that it was debilitating and limiting her daily activities. She requested Dr. Jose Carlos Ambriz, orthopedic surgeon, for operative intervention. Her right total knee arthroplasty was done on 02/04/17. During her postoperative phase, she actually did well during surgery, but postoperatively she had some difficulty on day 1. She had a desaturation into the 80s and she was not optimized with her physical therapy. Aggressive pulmonary hygiene was ordered, including breathing treatments and now she has progressed well today with her strengthening and conditioning per Physical Therapy, but she was discharged from the Acute Care setting and she is being admitted as a Swing Bed patient for strengthening and conditioning per Physical Therapy. DISCHARGE PLAN: The patient met her physical therapy strengthening and conditioning as per physical therapy's guidelines. She has followup appointment with Ana Lilia Georges and Dr. Ambriz. She will have [facility]. She is to continue her activity as per physical therapy, resume her previous medications. She has two additional days of Xarelto. She is to followup with Dr. mAbriz or Ana Lilia Georges with any problems. DISCHARGE MEDICATIONS.: 1. Lovastatin. 2. Lisinopril. 3. Carvedilol. 4. Proventil nebulizers. 5. Metformin. 6. DuoNeb. 7. Xarelto. 8. Flexeril. Dr. Garcia is the collaborating physician and available for consultation. #[id number] [facility]
== END 2017-02-13 13:54 | disposition home or self-care (01) | DRG 561 ==
LOC: MS 15:35
PROVIDERS: ADMIT Nurse Practitioner Acute Care; ATTEND Nurse Practitioner Acute Care
DX: Z47.1 Aftercare following joint replacement surgery (principal); Z96.651 Presence of right artificial knee joint; I10 Essential (primary) hypertension; E11.9 Type 2 diabetes mellitus without complications; E78.5 Hyperlipidemia, unspecified; Z79.84 Long term (current) use of oral hypoglycemic drugs; Z79.899 Other long term (current) drug therapy

== ENCOUNTER → 2017-02-26 | Outpatient (CLI) | payer MEDICARE | LOC: YCFC.O 13:50 | PROVIDERS: ATTEND Nurse Practitioner Family | DX: D64.9 Anemia, unspecified (principal) ==

== ENCOUNTER → 2017-04-08 | Outpatient (CLI) | payer MEDICARE | END | disposition home or self-care (01) | LOC: LAB.O 15:11 | DX: E11.9 Type 2 diabetes mellitus without complications (principal); R68.89 Other general symptoms and signs ==

== ENCOUNTER → 2017-07-21 | Outpatient (CLI) | payer MEDICARE | LOC: YCFC.O 17:07 | DX: E11.9 Type 2 diabetes mellitus without complications (principal) ==

== ENCOUNTER → 2017-09-11 | Outpatient (CLI) | payer MEDICARE ==
--- NOTE | 2017-09-11 17:52 | RAD ---
EXAM DESCRIPTION: Knee,Left Complete CLINICAL HISTORY: 56 years, Female, KNEE PAIN COMPARISON: None TECHNIQUE: Four views of the left knee FINDINGS: Four views of the left knee demonstrate severe degenerative changes with varus deformity and marked or sclerotic bone on bone appearance of the medial joint compartment and marginal hypertrophic osteophytes laterally with at least a modest joint effusion. Additional fractures or abnormalities are not apparent. IMPRESSION: 1. No acute fracture noted with advanced degenerative changes medially evident Electronically signed by: Ayden Rogers MD 09/11/2017 5:50 PM CDT
--- NOTE | 2017-09-11 17:54 | RAD ---
EXAM DESCRIPTION: Knee,Right Complete CLINICAL HISTORY: 56 years, Female, KNEE PAIN COMPARISON: None TECHNIQUE: Four views of the right knee FINDINGS: Right total knee replacement without a lucent patellar articular surface is noted with valgus alignment. The bones are modestly osteopenic. Moderate valgus deformity is present with widening of the medial joint space evident on the AP view. An acute fracture or dislocation is not apparent. No evidence of loosening is seen. IMPRESSION: 1. Right knee replacement with valgus deformity at the knee joint and widening of the medial compartment. Electronically signed by: Ayden Rogers MD 09/11/2017 5:51 PM CDT
--- NOTE | 2017-09-11 17:55 | RAD ---
EXAM DESCRIPTION: Chest,2 Views CLINICAL HISTORY: PRE OP COMPARISON: January 07, 2017 TECHNIQUE: PA/lateral FINDINGS: The lungs are well expanded and clear. No infiltrates or effusions or masses are noted. The heart is normal in size and shape with no evidence of vascular congestion. The joseph and mediastinum demonstrate normal contours. The bony spine and chest wall is normal for age in appearance. IMPRESSION: Normal chest, two views Electronically signed by: Ayden Rogers MD 09/11/2017 5:53 PM CDT
--- NOTE | 2017-09-11 17:55 | RAD ---
EXAM DESCRIPTION: Pelvis CLINICAL HISTORY: 56 years Female, HIP PAIN COMPARISON: April 01, 2016 FINDINGS: The bony pelvis appears intact without widening of the symphysis of the SI joints. No hip fracture or dislocation is present with modest vascular calcification and modest marginal osteophyte formation noted involving each acetabulum. IMPRESSION: No acute abnormality of the pelvis. Electronically signed by: Ayden Rogers MD 09/11/2017 5:52 PM CDT
== END ==
LOC: RAD 08:44
PROVIDERS: ATTEND Orthopaedic Surgery
DX: M25.561 Pain in right knee (principal); M25.562 Pain in left knee; M25.551 Pain in right hip; M25.552 Pain in left hip; Z01.818 Encounter for other preprocedural examination

== ENCOUNTER 2017-09-30 06:00 | Inpatient (IN) | payer MEDICARE ==
--- NOTE | 2017-09-26 09:17 | HP ---
CHIEF COMPLAINT: Left knee pain. HISTORY OF PRESENT ILLNESS: Araceli is a 56-year-old female with a history of severe knee pain. Her pain has been getting worse over the past several years. She has had right total knee replacement which has been successful in alleviating that pain. Because of her ongoing symptoms and failure of conservative measures, she has requested operative intervention. After discussing the risks, benefits and alternatives to that, the patient has given informed consent. PAST SURGICAL HISTORY: 1. Tonsillectomy. 2. Total knee arthroplasty. MEDICATIONS: 1. Calcium. 2. Carvedilol. 3. Cyclobenzaprine. 4. Glyburide. 5. Lisinopril. 6. Lovastatin. 7. Meloxicam. 8. Metformin. 9. Sulfamethoxazole. ALLERGIES: NO KNOWN DRUG ALLERGIES. CODE STATUS: Full code. IMMUNIZATIONS: Up to date. SOCIAL HISTORY: The patient does not drink, smoke or use any illicit drugs. FAMILY HISTORY: None pertinent to today's complaint. REVIEW OF SYSTEMS: Negative except as indicated in the History of Present Illness. PHYSICAL EXAMINATION: VITAL SIGNS: Blood pressure 136/82. Pulse 77. Height 5'4". Weight 203. MENTAL STATUS: The patient is awake, alert, and is able to give a good history and participate in the physical. The patient is oriented to person, place and time. SKIN: Normal tone and turgor. HEENT: Normocephalic, atraumatic. Pupils equal, round and reactive. Mucosal membranes are moist. NECK: Normal range of motion. No thyromegaly, no lymphadenopathy. CHEST: Normal respiratory excursion. CARDIAC: Regular rate and rhythm. No murmurs, rubs or gallops. MUSCULOSKELETAL: Bilateral upper extremities show full active range of motion. She has intact sensation. Flexion is 5/5. They are warm and well perfused and no deformity. The right lower extremity shows full range of motion of the hip. She has full extension of the knee with a well-healed scar anteriorly. She has full extension of the knee and flexion to about 120 today. The left lower extremity shows full range of motion of the hip. She has crepitus throughout her range of motion of the knee and has tenderness throughout. She has warm and well perfused extremity. Sensation is intact. She has a varus deformity and severe pain to palpation. She has a moderate effusion today. IMAGING: X-rays show severe arthritis of the knee. ASSESSMENT: 1. Arthritis. PLAN: The plan at this point is total knee arthroplasty. We have discussed the risks, benefits, and alternatives to that and the patient has given informed consent. [facility][id number] [facility]
[2017-09-30] MEDS ORDERED: ceFAZolin SODIUM 1 GM VIAL ONE (06:13)
[2017-09-30] MEDS ORDERED: fentaNYL CITRATE INJ 50 MCG/ML AMP ONE (06:23)
[2017-09-30] MEDS ORDERED: ACETAMINOPHEN IV 1000MG 100 ML ONE (06:23)
[2017-09-30] MEDS ORDERED: MIDAZOLAM INJ 2 MG/2 ML VIAL ONE (06:23)
[2017-09-30] MEDS ORDERED: MORPHINE SULF *EPIDURAL* 1 MG/ML VIAL ONE (06:23)
[2017-09-30] MEDS ORDERED: SCOPOLAMINE PATCH 1.5MG 1 EA TD ONE (06:25)
[2017-09-30] MEDS ORDERED: ZOLPIDEM TARTRATE 5 MG TAB PO PRN (06:53)
[2017-09-30] MEDS ORDERED: ALUMINUM & MAGNESIUM HYDROXIDE 30 ML UD PO PRN (06:53)
[2017-09-30] MEDS ORDERED: SODIUM CHLORIDE 0.9% (FLUSH) 10 ML SYG IV PRN (06:53)
[2017-09-30] MEDS ORDERED: traMADol HCL 50 MG TAB PO PRN (06:53)
[2017-09-30] MEDS ORDERED: CYCLOBENZAPRINE HCL 10 MG TAB PO PRN (06:53)
[2017-09-30] MEDS ORDERED: DEX 5% W/NACL 0.45% 1000ML 1,000 ML IVS PRN (06:53)
[2017-09-30] MEDS ORDERED: PROMETHAZINE HCL INJ 12.5 MG in SODIUM CHLORIDE 0.9% 50ML 50 ML IVPB PRN (06:53)
[2017-09-30] MEDS ORDERED: BENZOCAINE-MENTH LOZ (CEPACOL) 1 EA LOZ MT PRN (06:53)
[2017-09-30] MEDS ORDERED: ONDANSETRON INJ 4 MG/2 ML VIAL IV PRN (06:53)
[2017-09-30] MEDS ORDERED: BISACODYL SUPPOSITORY 10 MG PR PRN (06:53)
[2017-09-30] MEDS ORDERED: MORPHINE SULFATE INJ 10 MG/ML VIAL IM PRN (06:53)
[2017-09-30] MEDS ORDERED: ACETAMINOPHEN 325 MG TAB PO PRN (06:53)
[2017-09-30] MEDS ORDERED: PROMETHAZINE HCL INJ 25 MG in SODIUM CHLORIDE 0.9% 50ML 50 ML IVPB PRN (06:53)
[2017-09-30] MEDS ORDERED: MORPHINE SULFATE INJ 10 MG/ML VIAL IV PRN (06:53)
[2017-09-30] MEDS ORDERED: TEMAZEPAM 15 MG CAP PO PRN (06:53)
[2017-09-30] MEDS ORDERED: MAGNESIUM HYDROXIDE 30 ML UD PO PRN (06:53)
[2017-09-30] MEDS ORDERED: ACETAMINOPHEN 500 MG TAB PO PRN (06:53)
[2017-09-30] MEDS ORDERED: TRANEXAMIC ACID INJ 1,000 MG in SODIUM CHLORIDE 0.9% 100ML 100 ML IVPB ONE (06:53)
[2017-09-30] MEDS ORDERED: NALOXONE HCL INJ 0.4 MG/ML VIAL IV PRN (06:53)
[2017-09-30] MEDS ORDERED: MORPHINE PCA 1 MG/ML 100 ML BAG IVPB SCH (07:00)
[2017-09-30] MEDS: ceFAZolin SODIUM 1 GM VIAL ONE ×2 (08:10→08:26)
[2017-09-30] MEDS: VANCOMYCIN HCL INJ 1,000 MG VIAL IVPB ONE ×2 (08:10→08:26)
[2017-09-30] MEDS: BUPIVACAINE 0.25% W/EPI 50 ML VIAL INJ ONE ×2 (08:11→09:06)
[2017-09-30] MEDS ORDERED: SODIUM CHLORIDE 0.45% 1000ML 1,000 ML IVS PRN (08:50)
[2017-09-30] MEDS ORDERED: MORPHINE PCA 1 MG/ML 100 ML BAG IVPB ONE (09:18)
[2017-09-30] MEDS ORDERED: LACTATED RINGERS 1,000 ML ONE (10:20)
--- NOTE | 2017-09-30 10:54 | RAD ---
EXAM DESCRIPTION: Knee,Left 2 or More Views CLINICAL HISTORY: 56 years, Female, TKA COMPARISON: None TECHNIQUE: Two views of the left knee FINDINGS: A total left knee prosthesis without a patellar articular component is noted. Intra-articular and subcutaneous air consistent with recent surgery is noted with alignment of the knee essentially anatomic. No periarticular fractures are noted. The distal femur and proximal tibia appear intact. IMPRESSION: 1. Satisfactory right total knee replacement in essentially anatomic alignment. Electronically signed by: Ayden Rogers MD 09/30/2017 10:52 AM CDT
[2017-09-30] MEDS ORDERED: LIDOCAINE 1% 10 ML VIAL INJ ONE (12:00)
[2017-09-30] MEDS ORDERED: ONDANSETRON ODT 8 MG TAB PO ONE (12:00)
[2017-09-30] MEDS ORDERED: DEXAMETHASONE INJ 10 MG/ML VIAL IV ONE (12:00)
[2017-09-30] MEDS ORDERED: raNITIdine HCL INJ 25 MG/ML VIAL IV ONE (12:00)
[2017-09-30] MEDS ORDERED: ePHEDrine SULF 50 MG/ML IV ONE (12:00)
[2017-09-30] MEDS ORDERED: PROPOFOL 200 MG/20 ML VIAL IV ONE (12:00)
--- NOTE | 2017-09-30 13:31 | CONS ---
SUPERVISING PHYSICIAN: Riley Garcia MD DATE OF CONSULTATION: 09/30/17 REFERRING PHYSICIAN: Jose Carlos Ambriz MD HISTORY OF PRESENT ILLNESS: This is a 56-year-old female who electively came to the hospital for left total knee arthroplasty today. She has been having severe knee pain over the last several years. She has already had a right total knee arthroplasty which has alleviated her pain. Despite conservative measures such as physical therapy and oral analgesics, the patient underwent surgery today. There were no intraoperative complications. She came to the room postoperatively and currently is still pretty groggy from anesthesia, but awakens and answers appropriately. PAST MEDICAL HISTORY: 1. Hypertension. 2. Diabetes. 3. Hyperlipidemia. 4. Distant history of asthma, which she says she does not have any problems with anymore. PAST SURGICAL HISTORY: 1. Right total knee arthroplasty. 2. Hysterectomy. 3. Tonsillectomy. CURRENT MEDICATIONS: 1. Carvedilol 6.25 mg p.o. b.i.d. 2. Lisinopril 20 mg p.o. daily. 3. Lovastatin 20 mg at bedtime. 4. Metformin 500 mg p.o. b.i.d. ALLERGIES: NO KNOWN DRUG ALLERGIES. FAMILY HISTORY: Her mother had diabetes, hyperlipidemia, and hypertension. Her father had coronary artery disease, hypertension, hyperlipidemia and diabetes. SOCIAL HISTORY: She is a nondrinker, nonsmoker, no illicit drugs. REVIEW OF SYSTEMS: Other than the knee pain, she has not had any current fever or chills. No recent weight loss or weight gain. HEENT: No symptoms. RESPIRATORY: No cough, hemoptysis or shortness of breath. CARDIOVASCULAR: No chest pain, palpitations or peripheral edema. GASTROINTESTINAL: No nausea, vomiting, diarrhea, constipation or abdominal pain. GENITOURINARY: No dysuria, frequency or flank pain. HEMATOLOGIC: She did have some easy bruising when she was on Xarelto postoperatively from the last knee surgery, but she no longer takes this. ENDOCRINE: No polydipsia, polyuria, polyphagia. No heat or cold intolerance. NEUROLOGIC: No syncope or seizures. PHYSICAL EXAMINATION: VITAL SIGNS: Blood pressure 114/64. Heart rate 67. Respiratory rate 12. Temperature 97.3. Oxygen saturation 94%. GENERAL: Ms. Barnard is a 56-year-old female who is in no severe distress currently. HEENT: Normocephalic, atraumatic. Pupils are equal and reactive. No nasal drainage. Throat with slightly dry mucosa. NECK: Supple. Midline trachea. No jugular venous distention. CHEST: Symmetrical with equal rise and fall of the chest with inspiration and expiration. Lung sounds are currently clear to auscultation bilaterally. CARDIOVASCULAR: Regular rate and rhythm. Normal S1, S2. ABDOMEN: Obese, soft. Hypoactive bowel sounds. No tenderness to palpation. GENITOURINARY: Deferred. EXTREMITIES: Lower extremities with left lower extremity in a splint. No pedal edema. Pulses 2+. Capillary refill is less than 2 seconds. NEUROLOGIC: The patient is a little bit groggy from the anesthesia. She does awaken to voice, follows commands. There are no focal deficits. ASSESSMENT: 1. Left knee osteoarthritis status post left total knee arthroplasty. 2. History of hypertension, currently controlled. 3. History of diabetes mellitus. 4. Distant history of asthma with no acute issues with that at this point. PLAN: We will utilize postoperative orders by Dr. Ambriz. This will include physical therapy and pain control as well as some perioperative antibiotics. I have resumed her blood pressure medicines as well as diabetes medicines that will basically be resumed this evening once she wakes up more and starts to take a diet. We will ensure that her blood sugars stay controlled and if this proves not to be the case, we can start sliding scale to further assist with this. #[id number] [facility]
[2017-09-30] MEDS: IV SET AND CAP CHANGE INJ INJ SCH (15:24)
[2017-09-30] MEDS ORDERED: ceFAZolin SODIUM 2 GRAMS PREMI 50 ML IVPB ONE ×2 (15:26→19:43)
[2017-09-30] MEDS: ceFAZolin SODIUM 2 GRAMS PREMI 2 GM in PREMIX BAG 1 BAG IVPB SCH (15:43)
[2017-09-30] MEDS ORDERED: SODIUM CHLORIDE 0.9% 250ML 250 ML ONE ×2 (16:45→19:42)
[2017-09-30] MEDS ORDERED: VANCOMYCIN HCL INJ 1,000 MG VIAL IVPB ONE ×2 (16:45→19:43)
[2017-09-30] MEDS: CELECOXIB 100 MG CAP PO SCH (16:54)
[2017-09-30] MEDS: CARVEDILOL 3.125 MG TAB PO SCH (16:55)
[2017-09-30] MEDS ORDERED: SODIUM CHLORIDE 0.9% 50ML 50 ML ONE (17:22)
[2017-09-30] MEDS ORDERED: PROMETHAZINE HCL INJ 25 MG/ML VIAL ONE (17:22)
[2017-09-30] MEDS: VANCOMYCIN HCL INJ 1,000 MG in SODIUM CHLORIDE 0.9% 250ML 250 ML IVPB SCH (17:55)
[2017-09-30] MEDS: SODIUM CHLORIDE 0.45% 1000ML 1,000 ML IVS PRN (19:44)
[2017-09-30] MEDS: SIMVASTATIN 10 MG TAB PO SCH (20:30)
[2017-09-30] MEDS: DOCUSATE CALCIUM 240 MG CAP PO SCH (20:30)
[2017-09-30] MEDS ORDERED: metFORMIN XR 500 MG TAB.ER.24 PO SCH (21:00)
[2017-09-30] MEDS ORDERED: LOVASTATIN 20 MG PO SCH (21:00)
[2017-09-30] MEDS: ENOXAPARIN SODIUM 30 MG/0.3 ML SYG SUBCU SCH (21:14)
[2017-10-01] MEDS: ceFAZolin SODIUM 2 GRAMS PREMI 2 GM in PREMIX BAG 1 BAG IVPB SCH ×2 (00:03→07:30)
[2017-10-01] MEDS: VANCOMYCIN HCL INJ 1,000 MG in SODIUM CHLORIDE 0.9% 250ML 250 ML IVPB SCH (05:57)
[2017-10-01] MEDS ORDERED: ceFAZolin SODIUM 2 GRAMS PREMI 50 ML IVPB ONE (07:08)
[2017-10-01] MEDS: CARVEDILOL 3.125 MG TAB PO SCH ×2 (07:31→16:54)
[2017-10-01] MEDS: LISINOPRIL 10 MG TAB PO SCH (07:31)
[2017-10-01] MEDS: CELECOXIB 100 MG CAP PO SCH ×2 (07:32→16:54)
[2017-10-01] MEDS: metFORMIN HCL 500 MG TAB PO SCH ×2 (07:32→16:54)
--- NOTE | 2017-10-01 08:06 | OP ---
DATE OF PROCEDURE: 09/30/17 PREOPERATIVE DIAGNOSIS: 1. Left knee osteoarthritis. POSTOPERATIVE DIAGNOSIS: 1. Left knee osteoarthritis. PROCEDURE: 1. Left total knee arthroplasty. SURGEON: Jose Carlos Ambriz MD. EDGER FEEDER: Gonzales Field CST, SA-C. ANESTHESIA: General. COMPLICATIONS: None. FINDINGS: Severe arthritis with varus deformity. INDICATION: Araceli has a long history of pain in the knee with inability to function secondary to that. She has tried conservative measures, however, has failed to gain relief. Because of her ongoing discomfort, she has requested operative intervention. After discussing the risks, benefits and alternatives to that, the patient has given informed consent for total knee arthroplasty. PROCEDURE: The patient was brought to the Operating Room and placed in supine position. General anesthesia was induced and the patient's leg was sterilely prepped and draped. Following prepping and draping, the distal femur was exposed and using an intramedullary guide, the distal femoral cut was made. The appropriate sized cutting block was measured, pinned into place, and the anterior, posterior, and chamfer cuts were made. The ACL was transected and the tibia was subluxed. Both the medial and lateral menisci were removed. An intramedullary guide was used to make the proximal tibial cut. The appropriate sized base plate was placed and a trial polyethylene was placed. The trial femur was placed, the knee was reduced, and the knee was taken through a range of motion. The knee was stable in anterior, posterior, varus and valgus stress. The patella tracked anatomically without evidence of subluxation or dislocation. After trialing, the trial components were removed and the bony surfaces were thoroughly irrigated with saline. Following irrigation, the surfaces were dried and the final components were cemented into place. The excess cement was removed and the remaining cement was allowed to cure. The knee was again taken through a range of motion to confirm stability. The wound was then irrigated with saline and closure was performed using PDS to approximate the arthrotomy followed by closure of the subcutaneous tissues with a combination of running and interrupted Monocryl sutures. Sterile dressing was placed. The patient was awoken from anesthesia and taken to Recovery. POSTOPERATIVE INSTRUCTIONS: The patient will be weight-bearing as tolerated on postoperative day 1. COMPONENTS: [employer] Triathlon knee, size 5 femur, size 4 tibia, 11 mm insert. #[id number] [facility]
[2017-10-01] MEDS: MAGNESIUM OXIDE 400 MG TAB PO SCH (08:25)
[2017-10-01] MEDS: ENOXAPARIN SODIUM 30 MG/0.3 ML SYG SUBCU SCH ×2 (09:27→21:33)
--- NOTE | 2017-10-01 10:40 | PN ---
DATE: 10/01/17 SUBJECTIVE: She is doing really well this morning and has excellent pain control. OBJECTIVE: Afebrile. Vital signs stable. Dressing is clean, dry and intact. ASSESSMENT: Status post total knee arthroplasty. PLAN: She will begin weight-bearing as tolerated today. We will progress as tolerated and continue with CPM. [facility][id number] [facility]
--- NOTE | 2017-10-01 10:59 | PN ---
SUPERVISING PHYSICIAN: Riley Garcia MD DATE: 10/01/17 SUBJECTIVE: The patient states she is having some posterior knee discomfort on the left side. She is sitting up in a chair right now. She is not having any shortness of breath. Yesterday, she was having some problems with nausea and vomiting, however, that is not the case this morning and she was able to eat breakfast. OBJECTIVE: VITAL SIGNS: Blood pressure 103/71. Heart rate 69. Respiratory rate 12. Temperature 97.6. Oxygen saturation 99%. GENERAL: Ms. Barnard is a 56-year-old female in no active distress currently. NEUROLOGIC: Alert and oriented. LUNGS: Clear to auscultation bilaterally. CARDIOVASCULAR: Regular rate and rhythm. Normal S1, S2. ABDOMEN: Soft. Positive bowel sounds. EXTREMITIES: Lower extremities with left knee still in Jose bandaging. No significant edema. Pulses 2+. Capillary refill is less than 2 seconds. LABORATORY: Recheck on hemoglobin today was 11.6. ASSESSMENT: 1. Left knee osteoarthritis status post left total knee arthroplasty. 2. History of hypertension, continues to be controlled. 3. History of diabetes mellitus, appears to be within acceptable range. 4. Distant history of asthma, which does not appear to be causing any problems at this point. PLAN: We will continue current therapy. We will continue physical therapy, pain control in addition to utilizing her home medications. As per Dr. Ambriz regarding any issues with the surgery. [facility][id number] [facility]
[2017-10-01] MEDS: SODIUM CHLORIDE 0.45% 1000ML 1,000 ML IVS PRN (19:35)
[2017-10-01] MEDS: SIMVASTATIN 10 MG TAB PO SCH (20:42)
[2017-10-01] MEDS: DOCUSATE CALCIUM 240 MG CAP PO SCH (20:42)
[2017-10-02] MEDS: CARVEDILOL 3.125 MG TAB PO SCH ×2 (07:17→17:03)
[2017-10-02] MEDS: CELECOXIB 100 MG CAP PO SCH ×2 (07:18→17:03)
[2017-10-02] MEDS: metFORMIN HCL 500 MG TAB PO SCH ×2 (07:18→17:04)
[2017-10-02] MEDS: LISINOPRIL 10 MG TAB PO SCH (07:19)
[2017-10-02] MEDS: SODIUM CHLORIDE 0.9% (FLUSH) 10 ML SYG IV SCH ×2 (08:17→21:09)
[2017-10-02] MEDS: MAGNESIUM OXIDE 400 MG TAB PO SCH (08:18)
[2017-10-02] MEDS: HYDROcodone 5MG/APAP 325MG 1 EA TAB PO PRN ×2 (08:38→21:08)
[2017-10-02] MEDS: ENOXAPARIN SODIUM 30 MG/0.3 ML SYG SUBCU SCH ×2 (09:47→21:08)
--- NOTE | 2017-10-02 20:13 | PN ---
DATE: 10/02/17 SUPERVISING PHYSICIAN: Riley Garcia M.D. SUBJECTIVE: The patient is doing well. She has had good pain control. She currently is on her CPM and has been functioning well with physical therapy. She has had no nausea or vomiting. She has been afebrile. OBJECTIVE: VITAL SIGNS: temperature 98.4, pulse 71, blood pressure 147/85, respirations 20, satting 90% on room air with 94% on nasal cannula at 2 liters at rest. I's and O's show are balanced. Weight is 92.5 kg. CHEST: Lungs are clear to auscultation. HEART: Regular rate and rhythm. ABDOMEN: Soft, non- tender. Positive bowel sounds. EXTREMITIES: Left knee has a bulky dressing in place. Pulses distally are strong. Capillary refill is brisk. NEUROLOGIC: She is alert and oriented times three. ASSESSMENT: 1. Left knee osteoarthritis status post total left knee arthroplasty having failed to respond to outpatient treatment plan. 2. History of hypertension well controlled. 3. History of diabetes mellitus, well controlled., 4. History of asthma without any exacerbation. PLAN: Will continue to follow the patient as she continues through her physical therapy rehabilitation efforts. Discussed discharge planning and the patient is going to go to [facility] once discharged with possibility of going to Swing Bed prior to ultimate discharge. Until discharge, will continue to follow the patient and treat appropriately. #[id number] [facility]
[2017-10-02] MEDS: DOCUSATE CALCIUM 240 MG CAP PO SCH (21:08)
[2017-10-02] MEDS: SIMVASTATIN 10 MG TAB PO SCH (21:08)
[2017-10-03] MEDS: CARVEDILOL 3.125 MG TAB PO SCH (07:49)
[2017-10-03] MEDS: metFORMIN HCL 500 MG TAB PO SCH (07:50)
[2017-10-03] MEDS: HYDROcodone 5MG/APAP 325MG 1 EA TAB PO PRN (07:50)
[2017-10-03] MEDS: IV SET AND CAP CHANGE INJ INJ SCH (07:51)
[2017-10-03] MEDS: CELECOXIB 100 MG CAP PO SCH (07:51)
--- NOTE | 2017-10-03 09:01 | PN ---
DATE: 10/02/17 SUBJECTIVE: Araceli is doing well. She has no complaints. Her pain is well controlled. OBJECTIVE: Vital signs stable, afebrile. Wound is clean. There are no signs or symptoms of infection. ASSESSMENT: Status post total knee arthroplasty. PLAN: The plan at this point is for her to continue with weight-bearing as tolerated. We will progress that and her CPM as tolerated. [facility][id number] [facility]
[2017-10-03] MEDS: LISINOPRIL 10 MG TAB PO SCH (09:04)
[2017-10-03] MEDS: MAGNESIUM OXIDE 400 MG TAB PO SCH (09:04)
[2017-10-03] MEDS: ENOXAPARIN SODIUM 30 MG/0.3 ML SYG SUBCU SCH (09:05)
[2017-10-03] MEDS: SODIUM CHLORIDE 0.9% (FLUSH) 10 ML SYG IV SCH (09:05)
--- NOTE | 2017-10-03 09:06 | PN ---
DATE: 10/03/17 SUBJECTIVE: She is doing well without complaints. OBJECTIVE: Afebrile. Vital signs stable. Wound is clean. There are no signs or symptoms of infection. ASSESSMENT: Status post total knee arthroplasty. PLAN: The plan at this point is for her to continue with weight-bearing as tolerated. [facility][id number] [facility]
[2017-10-03 11:27] VITALS: BP 133/87; TEMP 98; O2SAT 92
--- NOTE | 2017-10-03 14:30 | DS ---
SUPERVISING PHYSICIAN: Riley Garcia MD DISCHARGE DIAGNOSIS: 1. Left knee osteoarthritis status post left knee arthroplasty having failed to respond to outpatient treatment plan, postoperative day 3. 2. History of hypertension, well controlled. 3. History of diabetes mellitus, well controlled. 4. History of asthma without exacerbation. REASON FOR HOSPITALIZATION: Ms. Barnard is a 56-year-old female patient who electively came to the hospital for a left total knee arthroplasty on 09/30/17. She had been having severe pain over the last several years. She had already had a right total knee arthroplasty which alleviated her pain. Despite conservative measures inclusive of physical therapy and analgesics, the patient underwent surgery on 09/30/17. LABORATORY: Postoperative hemoglobin 11.6, hematocrit 35.2. Chemistries showed glucoses 118 to 147. RADIOLOGY: Postoperative x-ray of the left knee showed total knee replacement in anatomic position per radiologic interpretation. HOSPITAL COURSE: Ms. Barnard was admitted as noted above on 09/30/17 for elective left total knee arthroplasty. She tolerated the surgery well and had good pain control postoperatively. She had no complications. She was able participate with her physical therapy, but continued to need additional aggressive therapy to ensure the patient's safety once discharged home. Therefore, the patient had failed to meet all set goals and was needing additional days and will be admitted to Swing Bed. PLAN: Ms. Barnard was discharged on 10/03/17 from Acute Care and admitted to Swing Bed on the same date for ongoing physical therapy and rehabilitation. Home medications were resumed as previous to hospitalization. DIET AT DISCHARGE: Diabetic diet as tolerated. ACTIVITY: As per physical therapy. CONDITION ON DISCHARGE: Stable and improved. #[id number] [facility]
[2017-10-03] MEDS ORDERED: BISACODYL SUPPOSITORY 10 MG PR ONE (21:00)
[2017-10-03] MEDS ORDERED: MAGNESIUM HYDROXIDE 30 ML UD PO ONE (21:00)
== END 2017-10-03 11:34 | disposition swing bed (61) | DRG 561 ==
LOC: AMB 06:00 → MS 10:30
PROVIDERS: ADMIT Orthopaedic Surgery; ATTEND Nurse Practitioner Family
DX: Z47.1 Aftercare following joint replacement surgery (principal); I10 Essential (primary) hypertension; E11.9 Type 2 diabetes mellitus without complications; J45.909 Unspecified asthma, uncomplicated; Z96.653 Presence of artificial knee joint, bilateral; Z79.84 Long term (current) use of oral hypoglycemic drugs

== ENCOUNTER 2017-10-03 11:34 | Inpatient (IN) | payer MEDICARE ==
[2017-10-03] MEDS ORDERED: MAGNESIUM HYDROXIDE 30 ML UD PO PRN (13:11)
[2017-10-03] MEDS ORDERED: ACETAMINOPHEN 500 MG TAB PO PRN (13:11)
[2017-10-03] MEDS ORDERED: GLUCAGON INJ 1 MG VIAL SUBCU PRN (13:11)
[2017-10-03] MEDS ORDERED: DEXTROSE 50% 25 GM/50 ML SYG IV PRN (13:11)
[2017-10-03] MEDS ORDERED: SODIUM PHOS/BIPHOS ENEMA ADULT 133 ML BTTL PR PRN (13:11)
[2017-10-03] MEDS: HYDROcodone 5MG/APAP 325MG 1 EA TAB PO PRN (14:00)
--- NOTE | 2017-10-03 14:40 | HP ---
SUPERVISING PHYSICIAN: Riley Garcia MD HISTORY OF PRESENT ILLNESS: Ms. Barnard is a 56-year-old female patient who was admitted on 09/30/17 for elective left total knee arthroplasty. She had been having severe pain in the left knee over the last several years. She had already had a right total knee arthroplasty which alleviated some of her pain. She continued to have conservative treatment in the outpatient setting including physical therapy and analgesics, but failed to receive any significant relief. Therefore, she requested elective surgical procedure to replace her left knee. She was followed through her postoperative phase in physical therapy, but continued to need ongoing physical therapy rehabilitation. Therefore, the patient is now going to be admitted to [facility]. PAST MEDICAL HISTORY: 1. Hypertension. 2. Diabetes mellitus. 3. Hyperlipidemia. 4. Distant history of asthma with no exacerbations. PAST SURGICAL HISTORY: 1. Current knee surgery for left total knee arthroplasty. 2. Right total knee arthroplasty. 3. Hysterectomy. 4. Tonsillectomy. CURRENT MEDICATIONS: 1. Carvedilol 6.25 mg p.o. b.i.d. 2. Lisinopril 20 mg p.o. daily. 3. Lovastatin 20 mg at bedtime. 4. Metformin 500 mg p.o. b.i.d. ALLERGIES: NO KNOWN DRUG ALLERGIES. FAMILY HISTORY: Her mother had diabetes, hyperlipidemia, and hypertension. Her father had coronary artery disease, hypertension, hyperlipidemia and diabetes. SOCIAL HISTORY: She is a nondrinker, nonsmoker, no illicit drugs. She has never been and she has no children. She is retired and lives in [place], [place]. REVIEW OF SYSTEMS: CONSTITUTIONAL: Denies fevers, chills other than ongoing postoperative surgical pain. HEENT: No nasal congestion, sore throat, earaches. RESPIRATORY: Denies cough, hemoptysis or shortness of breath. CARDIOVASCULAR: Denies chest pain, palpitations or edema. GASTROINTESTINAL: No nausea, vomiting, diarrhea, constipation or abdominal pain. GENITOURINARY: No dysuria, hematuria or flank pain. HEMATOLOGIC: She did have some easy bruising when she was on Xarelto postoperatively from the last knee surgery. ENDOCRINE: No polydipsia, polyuria, polyphagia. NEUROLOGIC: No syncope or seizures. PHYSICAL EXAMINATION: VITAL SIGNS: Temperature 97.8. Pulse 78. Blood pressure 133/87. Respirations 16. Saturation 92% on room air. Admission weight 92.5 kg. GENERAL: The patient is resting in a chair eating lunch. She appears to be comfortable in no acute distress. HEENT: Tympanic membranes clear bilaterally. Oropharynx is pink, moist without any lesions. NECK: Supple, nontender with full range of motion. No jugular venous distention noted. RESPIRATORY: Lungs clear to auscultation bilaterally without any rhonchi, wheezes, or rales. CARDIOVASCULAR: Regular rate and rhythm without any appreciable murmurs, gallops, or rubs. ABDOMEN: Obese, but soft, nontender. Positive bowel sounds. EXTREMITIES: Left knee has a surgical dressing in place which is clean and dry. No signs of infection. Distal pulses are strong. Brisk capillary refill. NEUROLOGIC: The patient is alert and oriented times three. ASSESSMENT: 1. Left knee osteoarthritis status post left knee arthroplasty having failed to respond to outpatient treatment plan, postoperative day 3. 2. History of hypertension, well controlled. 3. History of diabetes mellitus, well controlled. 4. History of asthma without exacerbation. PLAN: The patient is to be admitted to Swing Bed for ongoing physical therapy efforts and rehabilitation. We will continue her home medications once they have been updated and verified. I will continue with DVT prophylaxis as per protocol. We will defer further physical therapy and surgical management to physical therapy and Dr. Ambriz. We will continue to monitor the patient closely and treat appropriately until the patient meets her goals and can be safely discharged. #[id number] [facility]
[2017-10-03] MEDS: INSULIN LISPRO 100 UNITS/ML PEN SUBCU SCH ×2 (17:02→21:21)
--- NOTE | 2017-10-03 18:03 | PCM.CORE ---
Physician DVT/VTE - Prophylaxis Currently: Patient already on anticoagulation therapy - Nurse DVT Assessment & Total Each Risk Factor Represents 5 Points: Elective Arthtroplasty Each Risk Factor Represents 1 Point: Age 41-60 Each Risk Factor is 1 Point: Obesity (BMI >25) DVT Assessment Score: 7 - 5 or more Very High Risk Treatments: Early Ambulation *, Sequential Compression Device - sumitraleto
[2017-10-03] MEDS ORDERED: CYCLOBENZAPRINE HCL 10 MG TAB PO PRN (18:18)
[2017-10-03] MEDS ORDERED: LOVASTATIN 20 MG PO SCH (21:00)
[2017-10-03] MEDS ORDERED: metFORMIN HCL 500 MG TAB PO SCH (21:00)
[2017-10-04] MEDS ORDERED: LISINOPRIL 10 MG TAB ONE (07:07)
[2017-10-04] MEDS ORDERED: CARVEDILOL 3.125 MG TAB ONE (07:07)
[2017-10-04] MEDS: INSULIN LISPRO 100 UNITS/ML PEN SUBCU SCH ×4 (07:10→21:08)
[2017-10-04] MEDS: CELECOXIB 100 MG CAP PO SCH ×2 (07:11→16:51)
[2017-10-04] MEDS ORDERED: NON-FORMULARY MEDICATION 1 EA MIS (Lisinopril [Lisinopril] 20 MG) PO SCH (07:30)
[2017-10-04] MEDS ORDERED: NON-FORMULARY MEDICATION 1 EA MIS (Carvedilol [Carvedilol] 6.25 MG) PO SCH (07:30)
[2017-10-04] MEDS: DOCUSATE SODIUM 100 MG CAP PO SCH (08:20)
[2017-10-04] MEDS: RIVAROXABAN 10 MG TAB PO SCH (08:20)
--- NOTE | 2017-10-04 13:42 | PN ---
DATE: 10/04/17 SUBJECTIVE: She has no complaints today. OBJECTIVE: She is afebrile. Vital signs are stable. Wound is clean. There are no signs or symptoms of infection. ASSESSMENT: 1. Status post total knee arthroplasty. PLAN: The plan is to continue on with weightbearing as tolerated, strengthening and range of motion. #[id number] [facility]
[2017-10-04] MEDS: metFORMIN HCL 500 MG TAB PO SCH (16:51)
[2017-10-04] MEDS: CARVEDILOL 3.125 MG TAB PO SCH (16:51)
[2017-10-04] MEDS: SIMVASTATIN 10 MG TAB PO SCH (21:09)
[2017-10-05] MEDS: INSULIN LISPRO 100 UNITS/ML PEN SUBCU SCH ×4 (07:15→21:25)
[2017-10-05] MEDS: CELECOXIB 100 MG CAP PO SCH ×2 (07:17→16:48)
[2017-10-05] MEDS: CARVEDILOL 3.125 MG TAB PO SCH ×2 (07:18→16:48)
[2017-10-05] MEDS: metFORMIN HCL 500 MG TAB PO SCH ×2 (07:18→16:48)
[2017-10-05] MEDS: LISINOPRIL 10 MG TAB PO SCH (07:19)
[2017-10-05] MEDS: DOCUSATE SODIUM 100 MG CAP PO SCH (08:35)
[2017-10-05] MEDS: RIVAROXABAN 10 MG TAB PO SCH (08:35)
[2017-10-05] MEDS: SIMVASTATIN 10 MG TAB PO SCH (21:01)
[2017-10-06] MEDS: INSULIN LISPRO 100 UNITS/ML PEN SUBCU SCH ×4 (07:07→21:24)
[2017-10-06] MEDS: metFORMIN HCL 500 MG TAB PO SCH ×2 (07:11→17:00)
[2017-10-06] MEDS: CELECOXIB 100 MG CAP PO SCH ×2 (07:11→17:00)
[2017-10-06] MEDS: CARVEDILOL 3.125 MG TAB PO SCH ×2 (07:11→17:00)
[2017-10-06] MEDS: LISINOPRIL 10 MG TAB PO SCH (07:12)
--- NOTE | 2017-10-06 08:57 | PN ---
DATE: 10/06/17 SUBJECTIVE: Araceli is doing really well. She is up out of bed and eating breakfast. She has walked around the hallway today. OBJECTIVE: Afebrile. Vital signs stable. Wound is clean. There are no signs or symptoms of infection. ASSESSMENT: Status post total knee arthroplasty. PLAN: The plan at this point is for ongoing weight-bearing as tolerated. #[id number] [facility]
[2017-10-06] MEDS: DOCUSATE SODIUM 100 MG CAP PO SCH (09:14)
[2017-10-06] MEDS: RIVAROXABAN 10 MG TAB PO SCH (09:14)
[2017-10-06] MEDS: HYDROcodone 5MG/APAP 325MG 1 EA TAB PO PRN (15:09)
[2017-10-06] MEDS: SIMVASTATIN 10 MG TAB PO SCH (20:39)
[2017-10-07] MEDS: INSULIN LISPRO 100 UNITS/ML PEN SUBCU SCH ×2 (07:30→11:40)
[2017-10-07] MEDS: CELECOXIB 100 MG CAP PO SCH (07:43)
[2017-10-07] MEDS: CARVEDILOL 3.125 MG TAB PO SCH (07:43)
[2017-10-07] MEDS: metFORMIN HCL 500 MG TAB PO SCH (07:43)
[2017-10-07] MEDS: LISINOPRIL 10 MG TAB PO SCH (07:44)
[2017-10-07 07:54] VITALS: BP 150/86; TEMP 97.7
[2017-10-07] MEDS: DOCUSATE SODIUM 100 MG CAP PO SCH (08:01)
[2017-10-07] MEDS: RIVAROXABAN 10 MG TAB PO SCH (08:01)
[2017-10-07 08:34] VITALS: O2SAT 94
--- NOTE | 2017-10-07 15:27 | DS ---
SUPERVISING PHYSICIAN: Ayden Hurt MD DISCHARGE DIAGNOSIS: 1. Left knee osteoarthritis status post left knee arthroplasty having failed outpatient treatment plan, postoperative day 7. 2. History of hypertension, well controlled. 3. History of diabetes mellitus, well controlled. 4. History of asthma without exacerbation. 5. History of cerebrovascular accidents. HISTORY OF PRESENT ILLNESS: This is a 56-year-old female patient who was admitted on 09/30/17 for elective left total knee arthroplasty. She had been having severe pain in the left knee over the last several years. She had already had a right total knee arthroplasty. After conservative treatment in the outpatient setting including physical therapy and analgesics, she failed to receive any significant relief and she requested elective surgical procedure to replace her left knee to be performed by Dr. Jose Carlos Ambriz, orthopedic surgeon. She was followed postoperatively with physical therapy. She was discharged from the from the Acute Care setting to Swing Bed admission o 10/03/17. HOSPITAL COURSE: During this time, she progressed well, but slowly. Her pain was well controlled with her pain medications. She continued with her physical therapy for strengthening and conditioning. Today, she will be discharged home. DISCHARGE PLAN: The patient will be discharged home in stable condition. She is to continue her physical therapy with [facility] in the outpatient setting. She is to resume her previous diet as well as her previous medications. She was not discharged with any prescriptions as she has hydrocodone at home. She also had Xarelto 10 mg at home. She has been instructed to take 4 additional doses of Xarelto starting tomorrow. She has a followup appointment with Dr. Wallace on 10/16/17. She also needs to obtain a followup appointment with Dr. Ambriz within the next 2 weeks. She is to return to the hospital or to followup with Dr. Ambriz or Dr. Wallace for any further problems or complications. DISCHARGE MEDICATIONS: 1. Lovastatin. 2. Lisinopril. 3. Carvedilol. 4. Metformin. 5. Celebrex. 6. Cyclobenzaprine. 7. Hydrocodone. 8. Xarelto times four additional doses. Dr. Hurt is the collaborating physician and available for consultation. #[id number] [facility]
== END 2017-10-07 13:00 | disposition home or self-care (01) | DRG 561 ==
LOC: MS 11:34
PROVIDERS: ADMIT Nurse Practitioner Family; ATTEND Nurse Practitioner Acute Care
PROC: F07Z9FZ Gait Training/Functional Ambulation Treatment using Assistive, Adaptive, Supportive or Protective Equipment (ICD-10-PCS; principal; 2017-10-03)
DX: Z47.1 Aftercare following joint replacement surgery (principal); Z96.653 Presence of artificial knee joint, bilateral; I10 Essential (primary) hypertension; E11.9 Type 2 diabetes mellitus without complications; E78.5 Hyperlipidemia, unspecified; J45.909 Unspecified asthma, uncomplicated; Z86.73 Personal history of transient ischemic attack (TIA), and cerebral infarction without residual deficits; Z79.84 Long term (current) use of oral hypoglycemic drugs

== ENCOUNTER → 2017-11-13 | Outpatient (CLI) | payer MEDICARE | LOC: YCFC.O 08:35 | DX: E78.5 Hyperlipidemia, unspecified (principal); I10 Essential (primary) hypertension; D64.9 Anemia, unspecified ==

== ENCOUNTER → 2017-11-25 | Outpatient (CLI) | payer MEDICARE ==
--- NOTE | 2017-11-26 15:57 | MAM ---
EXAM DESCRIPTION: 3D Screening BILATERAL : Digital Mammography. CLINICAL HISTORY: 57 years Female SCREENING . No complaints. No family history breast cancer. Remote family history of ovarian cancer. No childbirth. Postmenopausal. No HRT. COMPARISON: 2-D digital screening bilateral study 10/01/2016. Report from prior examination also reviewed. TECHNIQUE: Bilateral CC and MLO projection full-field images, 3-D tomosynthesis digital mammographic technique. CAD not utilized. FINDINGS: The breast parenchymal density pattern is: Scattered areas of fibroglandular density. No skin thickening or nipple retraction. Bilateral solitary microcalcifications and coarse calcifications. Stable focal asymmetry in the posterior third of the right breast laterally. No focal, stellate mass or density, new focal asymmetry , and no suspicious microcalcifications bilaterally. Stable mammograms compared to prior study, taking into account differences in mammographic technique IMPRESSION: BI-RADS CATEGORY: 2 - BENIGN FINDINGS. FOLLOW UP: Routine digital bilateral screening, one year interval from November 2017. Written communication explaining the IMPRESSION and follow-up, will be mailed to the patient and referring health care provider. According to the [employer], yearly mammograms are recommended starting at age 40 and continuing as long as a woman is in good health. Any breast change noted on a breast self-exam should be reported promptly to the patient's healthcare provider. Breast MRI is recommended for women with an approximately 20-25% or greater lifetime risk of breast cancer, including women with a strong family history of breast or ovarian cancer and women who have been treated for Hodgkin's disease. A negative mammographic report should not delay tissue diagnosis in patients with significant clinical history or physical findings. Extremely dense breast tissue limits the sensitivity of digital mammography. Electronically signed by: Gonzales Ledbetter MD 11/26/2017 3:56 PM CDT
== END ==
LOC: MAMMO 10:00
DX: Z12.31 Encounter for screening mammogram for malignant neoplasm of breast (principal)

== ENCOUNTER → 2018-02-17 | Outpatient (CLI) | payer MEDICARE | LOC: YCFC.O 08:31 | PROVIDERS: ATTEND Family Medicine | DX: E11.9 Type 2 diabetes mellitus without complications (principal); E78.5 Hyperlipidemia, unspecified; I10 Essential (primary) hypertension ==

== ENCOUNTER → 2018-05-28 | Outpatient (CLI) | payer MEDICARE ==
--- NOTE | 2018-05-29 08:16 | RAD ---
EXAM DESCRIPTION: Pelvis CLINICAL HISTORY: 57 years Female, PAIN IN RIGHT HIP COMPARISON: September 11, 2017. TECHNIQUE: AP radiograph of the pelvis was performed. FINDINGS: The pelvic ring appears grossly intact on this single AP radiograph. No acute fracture or dislocation. Moderate degenerative changes are noted at bilateral SI joints. Mild degenerative disease noted at bilateral hip joints with osteophyte formation The visualized lumbo-sacral spine demonstrates moderate degenerative changes. Interval subluxation of L4 over L5 is noted on this partially visualized spine. IMPRESSION: 1. Single AP radiograph of the pelvis demonstrates grossly intact pelvic ring. 2. Partially visualized 2 spine demonstrates interval subluxation of L4 over L5. Spine radiographs are recommended for further evaluation. Electronically signed by: Nik Souza MD 05/29/2018 8:15 AM [facility]
--- NOTE | 2018-05-29 08:45 | RAD ---
EXAM DESCRIPTION: Knee,Right Complete CLINICAL HISTORY: 57 years Female, PAIN IN RIGHT KNEE TECHNIQUE: 4 views of the right knee were performed. COMPARISON: September 11, 2017 FINDINGS: The visualized bones appear well mineralized. Again noted are postsurgical changes consistent with total knee replacement with intact hardware. Interval development of a radiopaque density along the medial aspect of the medial compartment joint space likely represents an avulsion fracture, most likely reverse Segond fracture (question fracture of the medial collateral ligament.). The medial and lateral compartment joint space are well-maintained. Small amount of suprapatellar joint effusion noted. The overlying soft tissues appear grossly unremarkable. IMPRESSION: 1. Postsurgical changes consistent with total knee arthroplasty with intact hardware. 2. Interval development of a radiopaque density along the medial aspect of medial compartment joint space likely represents an avulsion fracture, most likely reverse Segond fracture (avulsion fracture of the medial collateral ligament.) Clinical correlation with physical examination and with recent history of trauma is recommended. An MRI is recommended for further evaluation. Electronically signed by: Nik Souza MD 05/29/2018 8:44 AM [facility]
== END ==
LOC: RAD 09:00
PROVIDERS: ATTEND Orthopaedic Surgery
DX: M25.561 Pain in right knee (principal); M25.551 Pain in right hip; S33.140A Subluxation of L4/L5 lumbar vertebra, initial encounter; Z96.651 Presence of right artificial knee joint

== ENCOUNTER → 2018-08-06 | Outpatient (CLI) | payer MEDICARE | LOC: LAB.O 08:13 | PROVIDERS: ATTEND Family Medicine | DX: I10 Essential (primary) hypertension (principal); E11.9 Type 2 diabetes mellitus without complications; R53.83 Other fatigue ==

== ENCOUNTER → 2018-09-01 | Outpatient (CLI) | payer MEDICARE ==
--- NOTE | 2018-09-01 16:29 | RAD ---
EXAM DESCRIPTION: Chest,2 Views CLINICAL HISTORY: PRE OP COMPARISON: Previous study September 11, 2017 TECHNIQUE: PA/lateral FINDINGS: A zipper over the neck is consistent with clothing artifact. Heart size is normal with normal pulmonary vascularity. No pleural effusion or pneumothorax. Lungs are clear with no consolidating infiltrate. Lateral view shows intact sternum and T-spine. IMPRESSION: No acute process is identified in the chest. Electronically signed by: Jaquan Ceron MD 09/01/2018 4:26 PM CDT
== END ==
LOC: RESP 10:28
PROVIDERS: ATTEND Orthopaedic Surgery
DX: Z01.818 Encounter for other preprocedural examination (principal)

== ENCOUNTER 2018-09-30 05:25 | Inpatient (IN) | payer MEDICARE ==
--- NOTE | 2018-09-28 09:19 | HP ---
CHIEF COMPLAINT: Right knee pain and instability. HISTORY OF PRESENT ILLNESS: Araceli is a 57-year-old female with a history of total knee arthroplasty that was done a couple of years back. She did well after that, but for some reason, started to have some instability. She currently denies any radiation of pain or neurologic symptoms. She has had instability which has caused to be on a walker. She has tried utilizing braces and physical therapy. Unfortunately, she has had no success with that. Because of her failure of conservative measures, she has requested operative intervention. After discussing the risks, benefits and alternatives to that, she has given informed consent. PAST SURGICAL HISTORY: 1. Tonsillectomy. 2. Bilateral total knee arthroplasty. MEDICATIONS: 1. Calcium. 2. Carvedilol. 3. Cyclobenzaprine. 4. Glyburide. 5. Lisinopril. 6. Lovastatin. 7. Meloxicam. 8. Metformin. 9. Sulfamethoxazole. ALLERGIES: NO KNOWN DRUG ALLERGIES. CODE STATUS: Full code. IMMUNIZATIONS: Up to date. FAMILY HISTORY: None pertinent to today's complaint. SOCIAL HISTORY: The patient does not drink, smoke or use any illicit drugs. REVIEW OF SYSTEMS: Negative except as indicated in the History of Present Illness. PHYSICAL EXAMINATION: VITAL SIGNS: Blood pressure 138/89. Pulse 80. Height 5'4". Weight 222 pounds. MENTAL STATUS: The patient is awake, alert, and is able to give a good history and participate in the physical. The patient is oriented to person, place and time. SKIN: Normal tone and turgor. HEENT: Normocephalic, atraumatic. Pupils equal, round and reactive. Mucosal membranes are moist. NECK: Normal range of motion. No thyromegaly, no lymphadenopathy. CHEST: Normal respiratory excursion. CARDIAC: Regular rate and rhythm. No murmurs, rubs or gallops. MUSCULOSKELETAL: The bilateral upper extremities show full active range of motion. She had intact sensation and they are warm and well perfused. She has no deformity and no crepitus. Strength is 5/5. The left lower extremity shows full range of motion in the hip. She has full range of motion in the knee. She has no significant pain, no deformity and strength is 5/5 throughout. The right lower extremity shows no pain with range of motion of the hip. She does have instability in the posterior as well as medial valgus stress testing. She has no swelling, no erythema and no increased warmth. IMAGING: X-rays show stable total knee arthroplasty. ASSESSMENT: 1. Failed total knee arthroplasty. PLAN: The plan at this point is for a revision total knee arthroplasty. We have discussed the risks, benefits, and alternatives to that and the patient has given informed consent. [facility][id number] [facility]
[2018-09-30] MEDS ORDERED: TRANEXAMIC ACID 1,000 MG/10 ML VIAL ONE ×2 (05:47→05:48)
[2018-09-30] MEDS ORDERED: LACTATED RINGERS 1,000 ML ONE (05:47)
[2018-09-30] MEDS ORDERED: VANCOMYCIN HCL INJ 1,000 MG VIAL IVPB ONE ×4 (05:47→20:23)
[2018-09-30] MEDS ORDERED: SODIUM CHL 0.9% 100ML MINI-BAG 100 ML IVPB ONE (05:47)
[2018-09-30] MEDS ORDERED: SODIUM CHLORIDE 0.9% 100ML 100 ML IVPB ONE (05:48)
[2018-09-30] MEDS ORDERED: SODIUM CHLORIDE 0.9% 250ML 250 ML ONE ×4 (05:48→20:23)
[2018-09-30] MEDS ORDERED: ceFAZolin SODIUM 1 GM VIAL ONE ×2 (05:48→06:35)
[2018-09-30] MEDS ORDERED: ROCURONIUM BROMIDE 10 MG/ML VIAL ONE (06:15)
[2018-09-30] MEDS ORDERED: fentaNYL CITRATE INJ 50 MCG/ML AMP ONE (06:15)
[2018-09-30] MEDS ORDERED: MORPHINE SULFATE *EPIDURAL* 0.5 MG/ML VIAL ONE (06:15)
[2018-09-30] MEDS ORDERED: ACETAMINOPHEN IV 1000MG 100 ML ONE (06:15)
[2018-09-30] MEDS ORDERED: MIDAZOLAM INJ 5 MG/5 ML VIAL ONE (06:16)
[2018-09-30] MEDS ORDERED: SCOPOLAMINE PATCH 1.5MG 1 EA TD ONE (06:26)
[2018-09-30] MEDS ORDERED: ePHEDrine SULF 50 MG/ML ONE (07:00)
[2018-09-30] MEDS ORDERED: ONDANSETRON INJ 4 MG/2 ML VIAL ONE (07:00)
[2018-09-30] MEDS ORDERED: LIDOCAINE 1% 10 ML VIAL INJ ONE (07:00)
[2018-09-30] MEDS ORDERED: DEXAMETHASONE INJ 10 MG/ML VIAL ONE (07:00)
[2018-09-30] MEDS ORDERED: PROPOFOL 200 MG/20 ML VIAL IV ONE (07:00)
[2018-09-30] MEDS ORDERED: SODIUM CHLORIDE 0.9% 50 ML VIAL ONE (07:00)
[2018-09-30] MEDS ORDERED: ALUMINUM & MAGNESIUM HYDROXIDE 30 ML UD PO PRN (07:14)
[2018-09-30] MEDS ORDERED: CYCLOBENZAPRINE HCL 10 MG TAB PO PRN (07:14)
[2018-09-30] MEDS ORDERED: traMADol HCL 50 MG TAB PO PRN (07:14)
[2018-09-30] MEDS ORDERED: NALOXONE HCL INJ 0.4 MG/ML VIAL IV PRN (07:14)
[2018-09-30] MEDS ORDERED: SODIUM CHLORIDE 0.45% 1000ML 1,000 ML IVS PRN (07:14)
[2018-09-30] MEDS ORDERED: SODIUM CHLORIDE 0.9% (FLUSH) 10 ML SYG IV PRN (07:14)
[2018-09-30] MEDS ORDERED: ZOLPIDEM TARTRATE 5 MG TAB PO PRN (07:14)
[2018-09-30] MEDS ORDERED: ACETAMINOPHEN 325 MG TAB PO PRN (07:14)
[2018-09-30] MEDS ORDERED: ONDANSETRON INJ 4 MG/2 ML VIAL IV PRN (07:14)
[2018-09-30] MEDS ORDERED: MORPHINE SULFATE INJ 10 MG/ML VIAL IM PRN (07:14)
[2018-09-30] MEDS ORDERED: BENZOCAINE-MENTH LOZ (CEPACOL) 1 EA LOZ MT PRN (07:14)
[2018-09-30] MEDS ORDERED: BISACODYL SUPPOSITORY 10 MG PR PRN (07:14)
[2018-09-30] MEDS ORDERED: PROMETHAZINE HCL INJ 12.5 MG in SODIUM CHLORIDE 0.9% 50ML 50 ML IVPB PRN (07:14)
[2018-09-30] MEDS ORDERED: ACETAMINOPHEN 500 MG TAB PO PRN (07:14)
[2018-09-30] MEDS ORDERED: TRANEXAMIC ACID INJ 1,000 MG in SODIUM CHLORIDE 0.9% 100ML 100 ML IVPB ONE (07:14)
[2018-09-30] MEDS ORDERED: MORPHINE SULFATE INJ 10 MG/ML VIAL IV PRN (07:14)
[2018-09-30] MEDS ORDERED: MAGNESIUM HYDROXIDE 30 ML UD PO PRN (07:14)
[2018-09-30] MEDS ORDERED: PROMETHAZINE HCL INJ 25 MG in SODIUM CHLORIDE 0.9% 50ML 50 ML IVPB PRN (07:14)
[2018-09-30] MEDS ORDERED: TEMAZEPAM 15 MG CAP PO PRN (07:14)
[2018-09-30] MEDS ORDERED: MORPHINE PCA 1 MG/ML 100 ML BAG IVPB SCH (07:30)
[2018-09-30] MEDS: BUPIVACAINE 0.5% 30 ML VIAL INJ ONE ×2 (07:49→08:38)
[2018-09-30] MEDS: BUPIVACAINE LIPOSOME 13.3 MG/ML VIAL INJ ONE ×2 (07:49→08:38)
[2018-09-30] MEDS: VANCOMYCIN HCL INJ 1,000 MG VIAL IVPB ONE ×2 (07:50→08:38)
[2018-09-30] MEDS: ceFAZolin SODIUM 1 GM VIAL ONE ×2 (07:50→08:38)
[2018-09-30] MEDS ORDERED: ELECTROLYTE-A 1,000 ML IVS ONE (08:13)
[2018-09-30] MEDS ORDERED: SUGAMMADEX SODIUM 200 MG/2 ML VIAL IV ONE (08:14)
[2018-09-30] MEDS ORDERED: LACTATED RINGERS 1,000 ML IVS ONE (09:43)
[2018-09-30] MEDS ORDERED: ONDANSETRON INJ 4 MG/2 ML VIAL IV ONE (10:40)
[2018-09-30] MEDS ORDERED: SODIUM CHLORIDE 0.9% 50ML 50 ML ONE ×2 (11:37→11:40)
[2018-09-30] MEDS ORDERED: PROMETHAZINE HCL INJ 25 MG/ML VIAL ONE ×2 (11:37→11:40)
[2018-09-30] MEDS ORDERED: GLUCAGON INJ 1 MG VIAL SUBCU PRN (11:50)
[2018-09-30] MEDS ORDERED: DEXTROSE 50% 25 GM/50 ML SYG IV PRN (11:50)
--- NOTE | 2018-09-30 11:56 | RAD ---
Frontal and lateral views of the right knee. Indication: TKA Impression: Postsurgical changes of right total knee arthroplasty and patellar resurfacing noted with associated postsurgical changes of the soft tissues. No complicating features identified. Electronically signed by: Otto Potter MD 09/30/2018 11:53 AM CDT
[2018-09-30] MEDS: CELECOXIB 100 MG CAP PO SCH ×2 (14:31→18:06)
[2018-09-30] MEDS: IV SET AND CAP CHANGE INJ INJ SCH (14:31)
[2018-09-30] MEDS: MAGNESIUM OXIDE 400 MG TAB PO SCH (14:32)
[2018-09-30] MEDS: INSULIN LISPRO 100 UNITS/ML PEN SUBCU SCH ×2 (16:38→21:13)
[2018-09-30] MEDS ORDERED: ceFAZolin SODIUM 2 GRAMS PREMI 50 ML IVPB ONE ×2 (17:36→20:25)
[2018-09-30] MEDS: ceFAZolin SODIUM 2 GRAMS PREMI 2 GM in PREMIX BAG 1 BAG IVPB SCH ×2 (17:42→23:23)
[2018-09-30] MEDS: VANCOMYCIN HCL INJ 1,000 MG in SODIUM CHLORIDE 0.9% 250ML 250 ML IVPB SCH (18:31)
[2018-09-30] MEDS ORDERED: ENOXAPARIN SODIUM 30 MG/0.3 ML SYG SUBCU ONE (20:22)
[2018-09-30] MEDS: DOCUSATE CALCIUM 240 MG CAP PO SCH (21:13)
[2018-09-30] MEDS: ENOXAPARIN SODIUM 30 MG/0.3 ML SYG SUBCU SCH (22:11)
--- NOTE | 2018-09-30 22:21 | CONS ---
DATE OF CONSULTATION: 09/30/18 SUPERVISING PHYSICIAN: Ayden Hurt M.D. REASON FOR CONSULTATION: Revision Total right knee arthroplasty. HISTORY OF PRESENT ILLNESS: Ms. Barnard is a 57 year-old female patient that was admitted today for revision total right knee arthroplasty. She had her left knee done last year at the same time, but over the last year it has developed some right instability. She tried multiple attempts at utilizing braces and physical therapy and unfortunately has gotten no positive results. Due to her failure of conservative measures she requested revision of the total knee replacement. She was seen in the immediate postoperative condition in stable condition. She was a little sleepy by alert. She was having a little bit of postoperative nausea that was treated with Phenergan. PAST MEDICAL HISTORY: 1. Hypertension. 2. Diabetes. 3. Asthma. PAST SURGICAL HISTORY: 1. Bilateral total knee arthroplasties 2. Tonsillectomy. CURRENT MEDICATIONS: 1. Atorvastatin 40 mg daily. 2. Aspirin 1 daily. 3. Carvedilol 6.25 mg daily. 4. Metformin b.i.d. 500 mg. 5. Lisinopril 20 mg b.i.d. ALLERGIES: NO KNOWN DRUG ALLERGIES. FAMILY HISTORY: Mother had diabetes, hyperlipidemia and hypertension. Father had coronary artery disease, hypertension, hyperlipidemia and diabetes. SOCIAL HISTORY: The patient is a nondrinker and nonsmoker. She does not use illicit drugs. She is retired and lives in [place], [place] and is single. REVIEW OF SYSTEMS: Negative for any fever or chills. No recent weight loss or weight gain. HEENT: Negative for any ear aches, sore throat, nasal congestion. RESPIRATORY: No cough, hemoptysis or shortness of breath. CARDIOVASCULAR: No chest pains, palpitation or peripheral edema. GASTROINTESTINAL: No nausea, vomiting, diarrhea or constipation prior to admission. No abdominal pain. GENITOURINARY: No dysuria, hematuria, flank pain or polyuria. HEMATOLOGIC: Denies any easy bruising. NEUROLOGIC: No syncopal episodes, seizures, ataxia. MUSCULOSKELETAL: As per HPI PHYSICAL EXAMINATION: VITAL SIGNS: Temperature 97.7, pulse 75, blood pressure 131/84, respirations 14, satting 99% on 3 liters nasal cannula. Admission weight is 99.7 kg. HEENT: Tympanic membranes are clear bilaterally. Oropharynx is pink and moist without any lesions. NECK: Supple, non-tender. Full range of motion. CHEST: Lungs are clear to auscultation bilaterally without any rhonchi, wheezing or rales. HEART: Regular rate and rhythm without appreciable murmurs, gallops, or rubs. ABDOMEN: Soft, non-tender. Positive bowel sounds. EXTREMITIES: Right knee has a large dressing in place which has Iceman in place as well. Distally pulses are strong, capillary refill is brisk. NEUROLOGIC: She is alert and oriented times three. LABORATORY: Postoperative H&H is pending. Postoperative blood sugar pending. ASSESSMENT: 1. Immediate postoperative day 0 for a revision of total right knee arthroplasty due to an instability and knee pain having failed to respond to conservative treatment measures as an outpatient. Surgery performed by Dr. Jose Carlos Ambriz. 2. History of hypertension, controlled. 3. History of diabetes mellitus type 2. 4. Distant history of asthma with no acute issues. PLAN: Will follow the patient postoperatively as she progresses through her physical therapy and rehabilitation efforts. I will review her medications and update those and restart as appropriate. She will be on DVT prophylaxis per protocol. Will anticipate her length of stay to be at least 2 to 3 days. Discharge planning will be started. At this point no decision is made as so far as continued physical therapy efforts as an outpatient. She will be on insulin sliding scale as per protocol. Until she can transition to outpatient management will continue to monitor and treat as needed. #[id number] [facility]
[2018-10-01] MEDS: VANCOMYCIN HCL INJ 1,000 MG in SODIUM CHLORIDE 0.9% 250ML 250 ML IVPB SCH (05:47)
[2018-10-01] MEDS ORDERED: NON-FORMULARY MEDICATION 1 EA MIS (Carvedilol [Carvedilol] 6.25 MG) PO SCH (07:30)
[2018-10-01] MEDS ORDERED: CARVEDILOL 12.5 MG TAB ONE (07:31)
[2018-10-01] MEDS ORDERED: ceFAZolin SODIUM 2 GRAMS PREMI 50 ML IVPB ONE (07:32)
[2018-10-01] MEDS: INSULIN LISPRO 100 UNITS/ML PEN SUBCU SCH ×4 (07:39→21:00)
[2018-10-01] MEDS: CELECOXIB 100 MG CAP PO SCH ×2 (07:41→17:21)
[2018-10-01] MEDS: ceFAZolin SODIUM 2 GRAMS PREMI 2 GM in PREMIX BAG 1 BAG IVPB SCH (08:11)
--- NOTE | 2018-10-01 09:00 | PN ---
DATE: 10/01/18 SUBJECTIVE: Araceli is doing well. She has well controlled pain right now. OBJECTIVE: Afebrile. Vital signs stable. Dressing is clean, dry and intact. ASSESSMENT: Status post revision total knee arthroplasty. PLAN: At this point, she is going to be weightbearing as tolerated. I am going to keep her in a brace for the time being until we get her going on physical therapy. #[id number] [facility]
[2018-10-01] MEDS ORDERED: ASPIRIN TABLET 325 MG TAB ONE (09:06)
[2018-10-01] MEDS: MAGNESIUM OXIDE 400 MG TAB PO SCH (09:14)
[2018-10-01] MEDS: metFORMIN HCL 500 MG TAB PO SCH ×2 (09:14→17:21)
[2018-10-01] MEDS: ASPIRIN (ENTERIC COATED) 325 MG TAB PO SCH (09:18)
[2018-10-01] MEDS: ENOXAPARIN SODIUM 30 MG/0.3 ML SYG SUBCU SCH ×2 (11:39→23:32)
--- NOTE | 2018-10-01 13:59 | PN ---
SUPERVISING PHYSICIAN: Ayden Hurt MD DATE: 10/01/18 SUBJECTIVE: The patient is sitting up in bed. She had been quite nauseated with vomiting yesterday and has been on a clear liquid diet. She tolerated her evening meal as well as her breakfast without any issues. She would like something substantial today as she has had no nausea, vomiting or abdominal pain. She denies shortness of breath as well as chest pain. Her knee did hurt some with getting up out of bed, but nothing that is intolerable or unexpected. OBJECTIVE: VITAL SIGNS: Temperature 97.5. Heart rate 72. Blood pressure 107/69. Respiratory rate 18. O2 saturation 96% on 3 liters nasal cannula. RESPIRATORY: Essentially clear to auscultation bilaterally. CARDIAC: Regular rate and rhythm. GASTROINTESTINAL: Abdomen is soft, nondistended, nontender. Bowel sounds are positive. EXTREMITIES: She has a dressing to her right knee that is dry and intact. She also has a brace on it. Her bilateral pedal pulses are palpable at +2. NEUROLOGIC: Awake, alert and oriented times three. LABORATORY: Hemoglobin 11.2, hematocrit 34.3. All other labs and films have been reviewed via the EMR. ASSESSMENT: 1. Revision of total right knee arthroplasty due to instability and knee pain having failed to respond to conservative treatment. Surgery performed by Dr. Jose Carlos Ambriz, postoperative day #1. 2. History of hypertension, controlled. 3. History of diabetes mellitus, type 2. 4. History of asthma with no acute issues. PLAN: We will continue present supportive care. Her orthopedic issues will be per Dr. Jose Carlos Ambriz, orthopedic surgeon. We will continue with physical therapy for strengthening and conditioning. On discharge, she will have [facility] physical therapy. She will hopefully be discharged in the next one to two days. I have encouraged good pulmonary toilet. We will continue to monitor the patient closely and follow as needed. [facility][id number] [facility]
[2018-10-01] MEDS: DOCUSATE CALCIUM 240 MG CAP PO SCH (20:37)
[2018-10-01] MEDS: ATORVASTATIN 20 MG TAB PO SCH (20:37)
[2018-10-02] MEDS: INSULIN LISPRO 100 UNITS/ML PEN SUBCU SCH ×4 (07:37→21:14)
[2018-10-02] MEDS: CARVEDILOL 3.125 MG TAB PO SCH (07:40)
[2018-10-02] MEDS: metFORMIN HCL 500 MG TAB PO SCH ×2 (07:40→17:58)
[2018-10-02] MEDS: CELECOXIB 100 MG CAP PO SCH ×2 (07:40→17:58)
[2018-10-02] MEDS: MAGNESIUM OXIDE 400 MG TAB PO SCH (08:44)
[2018-10-02] MEDS: ASPIRIN (ENTERIC COATED) 325 MG TAB PO SCH (08:44)
[2018-10-02] MEDS: SODIUM CHLORIDE 0.9% (FLUSH) 10 ML SYG IV SCH ×2 (08:48→21:12)
[2018-10-02] MEDS: HYDROcodone 5MG/APAP 325MG 1 EA TAB PO PRN ×2 (11:00→21:12)
[2018-10-02] MEDS: ENOXAPARIN SODIUM 30 MG/0.3 ML SYG SUBCU SCH ×2 (12:22→23:55)
--- NOTE | 2018-10-02 16:19 | PN ---
DATE: 10/02/18 SUPERVISING PHYSICIAN: Ayden Hurt M.D. SUBJECTIVE: The patient is sitting up in her chair in her room. She has just had her shower. Her parents are at the bedside. No complaints of nausea, vomiting, diarrhea or constipation, shortness of breath or chest pain. We discussed discharge plan and most likely will be discharged tomorrow after physical therapy, but we will await Physical Therapy's recommendation. OBJECTIVE: VITAL SIGNS: Temperature 99.1, T max 24 hours is 99.3. Heart rate 79, blood pressure 108/72, respiratory rate 16, O2 sat 96% on room air. RESPIRATORY: Essentially clear to auscultation bilaterally. CARDIAC: Regular rate and rhythm. GASTROINTESTINAL: Abdomen is soft, nondistended, non-tender. Bowel sounds are positive. EXTREMITIES: She has a dressing to her right knee that is dry and intact. She also has a brace in place. Bilateral pedal pulses are palpable at +2. NEUROLOGIC: She is awake, alert and oriented times three. LABORATORY: There are no labs or films to report at this time. ASSESSMENT: 1. Revision of total right knee arthroplasty due to instability and knee pain having failed to respond to conservative treatment. Surgery performed by Dr. Jose Carlos Ambriz, orthopedic surgeon, postoperative day #2. 2. History of hypertension, controlled. 3. History of diabetes mellitus, type 2. 4. History of asthma with no acute issues. PLAN: We will continue present supportive care. She will continue with physical therapy for strengthening and conditioning. Orthopedic issues will be per Dr. Jose Carlos Ambriz, orthopedic surgeon. Plan for discharge if she continues to improve after her physical therapy session tomorrow. She will have [facility]'s home health and physical therapy at discharge. I have encouraged her to use her incentive spirometry and continue with good pulmonary toilet. Will continue to monitor closely and follow as needed. [facility][id number] [facility]
[2018-10-02] MEDS: ATORVASTATIN 20 MG TAB PO SCH (21:12)
[2018-10-02] MEDS: DOCUSATE CALCIUM 240 MG CAP PO SCH (21:12)
[2018-10-03] MEDS: INSULIN LISPRO 100 UNITS/ML PEN SUBCU SCH ×4 (07:40→21:00)
[2018-10-03] MEDS: metFORMIN HCL 500 MG TAB PO SCH ×2 (07:42→16:42)
[2018-10-03] MEDS: CELECOXIB 100 MG CAP PO SCH ×2 (07:42→16:42)
[2018-10-03] MEDS: CARVEDILOL 3.125 MG TAB PO SCH (07:43)
[2018-10-03] MEDS: IV SET AND CAP CHANGE INJ INJ SCH (07:43)
[2018-10-03] MEDS: SODIUM CHLORIDE 0.9% (FLUSH) 10 ML SYG IV SCH ×2 (09:21→21:01)
[2018-10-03] MEDS: ASPIRIN (ENTERIC COATED) 325 MG TAB PO SCH (09:22)
[2018-10-03] MEDS: MAGNESIUM OXIDE 400 MG TAB PO SCH (09:22)
[2018-10-03] MEDS: ENOXAPARIN SODIUM 30 MG/0.3 ML SYG SUBCU SCH ×2 (11:20→22:32)
[2018-10-03] MEDS: ATORVASTATIN 20 MG TAB PO SCH (20:59)
[2018-10-03] MEDS: DOCUSATE CALCIUM 240 MG CAP PO SCH (21:00)
[2018-10-03] MEDS ORDERED: BISACODYL SUPPOSITORY 10 MG PR ONE (21:00)
[2018-10-03] MEDS ORDERED: MAGNESIUM HYDROXIDE 30 ML UD PO ONE (21:00)
[2018-10-04] MEDS: INSULIN LISPRO 100 UNITS/ML PEN SUBCU SCH ×2 (07:34→11:29)
[2018-10-04] MEDS: metFORMIN HCL 500 MG TAB PO SCH (07:41)
[2018-10-04] MEDS: CELECOXIB 100 MG CAP PO SCH (07:41)
[2018-10-04] MEDS: CARVEDILOL 3.125 MG TAB PO SCH (07:41)
[2018-10-04] MEDS: MAGNESIUM OXIDE 400 MG TAB PO SCH (08:37)
[2018-10-04] MEDS: SODIUM CHLORIDE 0.9% (FLUSH) 10 ML SYG IV SCH (08:37)
[2018-10-04] MEDS: ASPIRIN (ENTERIC COATED) 325 MG TAB PO SCH (08:37)
--- NOTE | 2018-10-04 10:21 | PN ---
DATE: 10/03/18 SUPERVISING PHYSICIAN: Ayden Hurt M.D. SUBJECTIVE: The patient is lying in her bed asleep. She awakens easily. We discussed discharge tomorrow and she felt that that would be the safest as she has someone at home as she will not have the hospital physical therapy department to come into her house until Friday. It is reported that Physical Therapy had to assist her with moving her legs somewhat, although she ambulated very well. Denies chest pain, shortness of breath, nausea, vomiting, diarrhea or constipation. OBJECTIVE: VITAL SIGNS: 97.8, heart rate 76, blood pressure 126/81, respiratory rate 18, O2 sat 94% on room air. RESPIRATORY: Essentially clear to auscultation bilaterally. CARDIAC: Regular rate and rhythm. GASTROINTESTINAL: Abdomen is soft, nondistended, non-tender. Bowel sounds are positive. EXTREMITIES: She has a dressing to the right knee that is dry and intact. She also has a brace on the right knee. Her bilateral pedal pulses are palpable at +2. Blood sugars have run between 131 and 237. All other labs and films have been reviewed via the EMR. ASSESSMENT: 1. Revision of total right knee arthroplasty due to instability and knee pain having failed to respond to conservative treatment. Surgery performed by Dr. Jose Carlos Ambriz, orthopedic surgeon, postoperative day #3. 2. History of hypertension, controlled. 3. History of diabetes mellitus, type 2. 4. History of asthma with no acute issues. PLAN: We will continue present supportive care. Orthopedic issues will be per Dr. Jose Carlos Ambriz, orthopedic surgeon. Plan for discharge tomorrow with continuing her rehab with [facility]'s home health and physical therapy department which will begin on Friday. She is encouraged to have good pulmonary hygiene. Will continue to monitor closely and follow as needed. #[id number] [facility]
[2018-10-04] MEDS: ENOXAPARIN SODIUM 30 MG/0.3 ML SYG SUBCU SCH (11:13)
[2018-10-04 14:04] VITALS: BP 118/79; TEMP 98.3; O2SAT 95
--- NOTE | 2018-10-04 20:14 | DS ---
SUPERVISING PHYSICIAN: Ayden Hurt M.D. DISCHARGE DIAGNOSIS: 1. Revision of total right knee arthroplasty due to instability and knee pain having failed to respond to conservative treatment. Surgery performed by Dr. Jose Carlos Ambriz, orthopedic surgeon, postoperative day #4. 2. History of hypertension, controlled. 3. History of diabetes mellitus, type 2. 4. History of asthma with no acute issues. HISTORY OF PRESENT ILLNESS: This is a 57 year-old female patient who was admitted to the hospital for revision or her total right knee arthroplasty. She had her left knee done several years ago, but for some reason she started having some instability. She denied any radiation of pain or neurologic symptoms. She has to use a walker as well as a brace. She has had no success with that, so she requested Dr. Jose Carlos Ambriz, orthopedic surgeon, for a revision. She has her other knee done about a year ago. She had no intraoperative problems and she was admitted to the floor after her surgery. She did have some nausea postoperatively and was treated with Phenergan. HOSPITAL COURSE: Over the next several days she completed her physical therapy without any issues. Initially her progress was fairly slow due to her brace. It kept sliding down but she is to have one of those refitted as an outpatient. Her home medications were restarted. She continued with physical therapy for strengthening and conditioning, and today she will be discharged home in stable condition. LABORATORY: H&H postoperatively was 11.2 and 34.3. DISCHARGE PLAN: The patient will be discharged home in stable condition. She is to have [facility]'s home health as well as their physical therapy. She is to resume her previous diet and increase her activity as instructed per Physical Therapy. She is to followup with Dr. Jose Carlos Ambriz within the next 2 weeks. She will be discharged on Tramadol and Flexeril in addition to her previous medications. She is to return to the hospital or followup with Dr. Ambriz for any problems or complications. DISCHARGE MEDICATIONS: 1. Lisinopril. 2. Carvedilol. 3. Metformin. 4. Aspirin. 5. Atorvastatin. 6. Cyclobenzaprine. 7. Tramadol. 8. Xarelto. #[id number] [facility]
--- NOTE | 2018-10-06 08:55 | OP ---
DATE OF PROCEDURE: 09/30/18 PREOPERATIVE DIAGNOSIS: 1. Unstable right total knee. POSTOPERATIVE DIAGNOSIS: 1. Unstable right total knee. PROCEDURE: 1. Polyethylene exchange. SURGEON: Jose Carlos Ambriz MD. SOFTWARE QUALITY TESTER: Gonzales Field CST, SA-C. ANESTHESIA: General anesthesia. COMPLICATIONS: None. FINDINGS: Instability in the AP plane as well as some in varus/valgus plane. Postoperatively, stability was achieved with insertion of a thicker polyethylene. INDICATION: Araceli has a history of a right total knee replacement done which did very well, however, after about 6 months, she is not sure what exactly happened, but began feeling instability. After that, she had worsening difficulty with ambulation. After discussing the risks, benefits and alternatives to operative therapy, the patient has given informed consent for the above procedure. PROCEDURE: The patient was brought to the Operating Room and placed in supine position. General anesthesia was induced and the patient's leg was sterilely prepped and draped. Following prepping and draping, an incision was made in line with the previous scar. After that, the polyethylene was removed and the components were manually checked to make sure there was no evidence of lifting. There was no fluid present, no evidence of active infection. Because of the stability of the components, I elected to attempt insertion of trial polyethylenes to see if I could attain stability. I tried to use a 22 mm CS insert and reduced the knee. It was stable in both anterior/posterior directions as well as varus/valgus directions. Because of that, I elected to refrain from removing all components. The trial was removed and the knee was thoroughly irrigated. The final polyethylene was impacted and again the knee was taken through a range of motion. The patella tracked well. There was stability achieved. Following that, the wound was again thoroughly irrigated. It was closed in layers with reapproximation of the capsule using interrupted PDS followed by closure of the arthrotomy and skin. Sterile dressings were placed. The patient was awoken from anesthesia and taken to Recovery. POSTOPERATIVE PLAN: The patient will be weight-bearing as tolerated on postoperative day 1. #[id number] [facility]
== END 2018-10-04 14:40 | disposition home health service (06) | DRG 489 ==
LOC: AMB 05:25 → MS 11:20
PROVIDERS: ADMIT Orthopaedic Surgery; ATTEND Nurse Practitioner Acute Care
PROC: 0SUV09Z Supplement Right Knee Joint, Tibial Surface with Liner, Open Approach (ICD-10-PCS; 2018-09-30)
PROC: 3E0T3BZ Introduction of Anesthetic Agent into Peripheral Nerves and Plexi, Percutaneous Approach (ICD-10-PCS; 2018-09-30)
PROC: 0SPC09Z Removal of Liner from Right Knee Joint, Open Approach (ICD-10-PCS; principal; 2018-09-30 07:01)
DX: T84.89XA Other specified complication of internal orthopedic prosthetic devices, implants and grafts, initial encounter (principal); I10 Essential (primary) hypertension; J45.909 Unspecified asthma, uncomplicated; E11.9 Type 2 diabetes mellitus without complications; E66.9 Obesity, unspecified; Z96.653 Presence of artificial knee joint, bilateral; Z79.82 Long term (current) use of aspirin; Z79.84 Long term (current) use of oral hypoglycemic drugs; Z79.899 Other long term (current) drug therapy; Y79.2 Prosthetic and other implants, materials and accessory orthopedic devices associated with adverse incidents; Y92.9 Unspecified place or not applicable; Z68.37 Body mass index [BMI] 37.0-37.9, adult

== ENCOUNTER → 2018-12-11 | Outpatient (CLI) | payer MEDICARE ==
--- NOTE | 2018-12-15 17:34 | MAM ---
EXAM DESCRIPTION: 3D Screening BILATERAL : Digital Mammography. CLINICAL HISTORY: 58 years Female ANNUAL SCREENING . No complaints. No personal or family history of breast cancer. No childbirth. Postmenopausal 5 years. No HRT. Lifetime risk of developing breast cancer (Tyrer-Cuzick model)(%): 9.1. COMPARISON: Bilateral screening digital breast tomosynthesis 11/25/2017. TECHNIQUE: Bilateral CC and MLO projection full-field images, digital tomosynthesis mammographic technique. Bilateral digital 2-D full-field MLO images. CAD not available for tomosynthesis or 2-D images. FINDINGS: The breast parenchymal density pattern is: Scattered areas of fibroglandular density. No skin thickening or nipple retraction. Bilateral axillary lymph nodes are better visualized on the current study due to improved technique, resulting in better visualization of the bilateral pectoral muscles compared to the prior study. The included lymph nodes show prominent fatty joseph. Microcalcifications and bilateral coarse calcifications are noted. Focal asymmetry lateral posterior right breast is stable. No new focal, stellate mass or density, focal asymmetry , and no suspicious microcalcifications bilaterally. Otherwise stable mammograms compared to prior study. IMPRESSION: Benign exam. BIRAD CATEGORY: 2 BENIGN FINDINGS. RECOMMENDATIONS: FOLLOW UP: Routine digital bilateral mammographic screening, one year interval from November 2018. Written communication explaining the IMPRESSION and follow-up, will be mailed to the patient and referring health care provider. According to the [employer], yearly mammograms are recommended starting at age 40 and continuing as long as a woman is in good health. Any breast change noted on a breast self-exam should be reported promptly to the patient's healthcare provider. Breast MRI is recommended for women with an approximately 20-25% or greater lifetime risk of breast cancer, including women with a strong family history of breast or ovarian cancer and women who have been treated for Hodgkin's disease. A negative mammographic report should not delay tissue diagnosis in patients with significant clinical history or physical findings. Extremely dense breast tissue limits the sensitivity of digital mammography. Electronically signed by: Gonzales Ledbetter MD 12/15/2018 5:32 PM CDT
== END ==
LOC: MAMMO 10:30
PROVIDERS: ATTEND Family Medicine
DX: Z12.31 Encounter for screening mammogram for malignant neoplasm of breast (principal)

== ENCOUNTER → 2019-02-09 | Outpatient (CLI) | payer MEDICARE | LOC: LAB.O 08:33 | PROVIDERS: ATTEND Family Medicine | DX: E11.65 Type 2 diabetes mellitus with hyperglycemia (principal); E78.5 Hyperlipidemia, unspecified ==

== ENCOUNTER → 2019-05-12 | Outpatient (CLI) | payer MEDICARE | END | disposition home or self-care (01) | LOC: YCFC.O 11:18 | PROVIDERS: ATTEND Family Medicine | DX: E11.65 Type 2 diabetes mellitus with hyperglycemia (principal) ==

== ENCOUNTER → 2019-07-19 | Outpatient (CLI) | payer MEDICARE ==
--- NOTE | 2019-07-19 15:40 | RAD ---
EXAM DESCRIPTION: Pelvis CLINICAL HISTORY: 58 years Female, PAIN IN RIGHT HIP COMPARISON: May 28, 2018 FINDINGS: Single view of the pelvis demonstrates mild levoscoliosis of the lumbar spine with advanced degenerative disc changes L4-5. SI joints appear intact and the bony pelvic ring intact. Mild marginal osteophyte formation at the lateral acetabular rims is noted bilaterally. Superior and inferior pubic rami intact. No soft tissue masses noted. IMPRESSION: Intact pelvis. Electronically signed by: Ayden Rogers MD 07/19/2019 3:39 PM [facility]
--- NOTE | 2019-07-19 15:41 | RAD ---
EXAM DESCRIPTION: Hip,Right 2 Views CLINICAL HISTORY: PAIN IN RIGHT HIP COMPARISON: None Available. TECHNIQUE: AP/frog leg lateral FINDINGS: Two radiographic views right hip demonstrate marginal osteophyte formation superiorly and inferiorly at the acetabular margin with preserved joint space that is minimally narrowed. This femoral head is smooth and round no evidence of fracture or dislocation or deformity. IMPRESSION: Minimally degenerative right hip, otherwise negative study. Electronically signed by: Ayden Rogers MD 07/19/2019 3:39 PM [facility]
== END ==
LOC: RAD 09:55
PROVIDERS: ATTEND Orthopaedic Surgery
DX: M16.11 Unilateral primary osteoarthritis, right hip (principal)

== ENCOUNTER → 2019-08-12 | Outpatient (CLI) | payer MEDICARE | LOC: LAB.O 09:01 | PROVIDERS: ATTEND Family Medicine | DX: E11.65 Type 2 diabetes mellitus with hyperglycemia (principal); E78.5 Hyperlipidemia, unspecified; I10 Essential (primary) hypertension; R53.83 Other fatigue ==

== ENCOUNTER → 2019-11-08 | Outpatient (CLI) | payer MEDICARE | LOC: YCFC.O 10:30 | PROVIDERS: ATTEND Family Medicine | DX: E78.5 Hyperlipidemia, unspecified (principal); E11.9 Type 2 diabetes mellitus without complications ==

== ENCOUNTER → 2019-11-29 | Outpatient (CLI) | payer MEDICARE ==
--- NOTE | 2019-12-01 17:01 | MAM ---
EXAM DESCRIPTION: 3D Screening BILATERAL : Digital Mammography. CLINICAL HISTORY: 59 years Female SCREENING . No complaints. No personal or family history of breast cancer. Menarche age 9. No childbirth. Menopause age unknown. No HRT.. Lifetime risk of developing breast cancer (Tyrer-Cuzick model)(%): 8.9. COMPARISON: Bilateral screening digital breast tomosynthesis November 2018 and November 2017.. TECHNIQUE: Bilateral CC and MLO projection full-field images, digital tomosynthesis mammographic technique. Bilateral digital 2-D full-field MLO images. CAD available for 2-D images. FINDINGS: The breast parenchymal density pattern is: Scattered areas of fibroglandular density. No skin thickening or nipple retraction. Axillary lymph nodes. Vascular calcifications. Microcalcifications. Coarse and "eggshell" calcifications. Groups of benign type microcalcifications mid right breast. No new focal, stellate mass or density, focal asymmetry , and no suspicious microcalcifications bilaterally. Stable mammograms compared to prior study. IMPRESSION: Benign exam. BIRAD CATEGORY: 2 BENIGN FINDINGS. RECOMMENDATIONS: FOLLOW UP: Routine digital bilateral mammographic screening, one year interval from November 2019. Written communication explaining the IMPRESSION and follow-up, will be mailed to the patient and referring health care provider. According to the [employer], yearly mammograms are recommended starting at age 40 and continuing as long as a woman is in good health. Any breast change noted on a breast self-exam should be reported promptly to the patient's healthcare provider. Breast MRI is recommended for women with an approximately 20-25% or greater lifetime risk of breast cancer, including women with a strong family history of breast or ovarian cancer and women who have been treated for Hodgkin's disease. A negative mammographic report should not delay tissue diagnosis in patients with significant clinical history or physical findings. Extremely dense breast tissue limits the sensitivity of digital mammography. Electronically signed by: Gonzales Ledbetter MD 12/01/2019 4:59 PM CDT
== END ==
LOC: MAMMO 10:30
PROVIDERS: ATTEND Family Medicine
DX: Z12.31 Encounter for screening mammogram for malignant neoplasm of breast (principal)

== ENCOUNTER → 2020-05-16 | Outpatient (CLI) | payer MEDICARE | LOC: YCFC.O 05-15 11:20 | PROVIDERS: ATTEND Family Medicine | DX: E11.9 Type 2 diabetes mellitus without complications (principal); E78.5 Hyperlipidemia, unspecified; I10 Essential (primary) hypertension ==

== ENCOUNTER → 2020-05-25 | Outpatient (CLI) | payer MEDICARE ==
--- NOTE | 2020-05-26 16:20 | US ---
EXAM DESCRIPTION: Extremity,Lower [place] Arteries: Ultrasound. CLINICAL HISTORY: PVD COMPARISON: None. TECHNIQUE: Doppler evaluation of the bilateral lower extremity arterial flow waveforms and velocities. FINDINGS: Arterial waveforms in the right lower extremity are multiphasic from the right common femoral artery through the right posterior tibial artery. Monophasic in the right dorsalis pedis artery.. Arterial waveforms in the left lower extremity are multiphasic from the left common femoral artery through the left peroneal artery. Monophasic in the left posterior tibial artery and left dorsalis pedis artery.. Comments: Multiphasic left peroneal artery but marked elevation indicate stenosis. IMPRESSION: Doppler ultrasound of the bilateral lower extremity arterial system shows evidence of mild degree of atherosclerotic occlusive disease in the bilateral dorsalis pedis arteries and likely the proximal bilateral anterior tibial arteries. Extremely high velocity in the left peroneal artery which is multiphasic but most likely stenotic. Consider follow-up CTA abdominal aorta and bilateral lower extremities.. Electronically signed by: Gonzales Ledbetter MD 05/26/2020 4:18 PM [employer]
== END ==
LOC: US 14:37
PROVIDERS: ATTEND Family Medicine
DX: I70.203 Unspecified atherosclerosis of native arteries of extremities, bilateral legs (principal)

== ENCOUNTER → 2020-06-09 | Outpatient (CLI) | payer MEDICARE ==
--- NOTE | 2020-06-10 23:13 | CT ---
EXAM: CTA Runoff INDICATION: PERIPHERAL VASCULAR DISEASE . COMPARISON: Bilateral lower extremity arterial Doppler 05/25/2020, CT abdomen pelvis with contrast 05/23/2016 TECHNIQUE: CT angiogram of the abdomen and pelvis with lower extremity runoff was performed following the administration of IV contrast. Multiple axial images and multiplanar reconstructions were generated. MIP reconstructed images were also created and interpreted. This exam was performed according to our departmental dose-optimization program, which includes automated exposure control, adjustment of the mA and/or kV according to patient size and/or use of iterative reconstruction technique. VASCULAR FINDINGS: Moderate calcified and noncalcified atherosclerotic plaque in the abdominal aorta. No aneurysm or dissection. Mild atherosclerosis at the celiac artery origin without hemodynamically significant stenosis. Superior mesenteric artery is widely patent. The inferior mesenteric artery demonstrates moderate atherosclerosis in its proximal segment but remains patent. Mild atherosclerotic plaque at the origin of the right renal artery. The left renal artery is widely patent. Right: Mild atherosclerosis in the common iliac artery without hemodynamically significant stenosis. Moderate multifocal atherosclerotic plaque in the branches of the internal iliac artery without high-grade stenosis. No substantial atherosclerotic plaque in the external iliac artery or common femoral artery. Mild scattered atherosclerotic plaque in the branches of the deep femoral artery without high-grade stenosis. Multifocal moderate atherosclerotic plaque in the superficial femoral artery with short segment focal mild less than 50% stenosis in the distal segment. Dense streak artifact from the metallic hardware of the knee prosthesis obscures portions of the popliteal artery. No definite high-grade stenosis is identified in the popliteal artery. Multifocal atherosclerotic plaque in the anterior tibial artery which appears to become occluded at approximately the level of the calf. Multifocal stenoses of the posterior tibial and peroneal arteries which demonstrate runoff into the ankle and foot. Left: Mild atherosclerotic plaque in the common iliac artery without hemodynamically significant stenosis. Moderate multifocal atherosclerotic plaque in the branches of the internal iliac artery without high-grade stenosis. The external iliac artery and common femoral artery demonstrate no substantial atherosclerotic plaque. Moderate atherosclerosis with at least mild multifocal stenoses in the branches of the deep femoral artery. Multifocal mild stenoses in the superficial femoral artery due to atherosclerotic plaque. Dense streak artifact from metallic hardware the knee prosthesis obscures portions of the popliteal artery. No definite high-grade stenosis is identified in the popliteal artery. Multifocal stenoses of the posterior tibial, peroneal, and anterior tibial arteries. There appears to be three-vessel runoff into the ankle and foot. NONVASCULAR FINDINGS: Visualized chest: Scattered atelectasis in the visualized lung bases. Heart size is within normal limits. Liver: Unremarkable appearance of the liver. Gallbladder: Unremarkable appearance of the gallbladder. Pancreas: Unremarkable appearance of the pancreas. Spleen: Unremarkable appearance of the spleen. Adrenal glands: Unremarkable appearance of the adrenal glands. Kidneys, ureters, bladder: Scarring in the right kidney. Tiny low-density lesion in the anterior midpole left kidney is too small to definitively characterize but most likely represents a cyst (axial series 2 image 67). No hydronephrosis. No striated nephrograms. No obstructing renal stones. Unremarkable appearance of the visualized portions of the ureters. Unremarkable appearance of the urinary bladder which is mostly collapsed. Stomach and bowel: Unremarkable appearance of the stomach. No dilated loops of small bowel. Scattered colonic diverticulosis without evidence for acute diverticulitis. The appendix is identified and appears normal. Uterus and adnexa: The uterus is either atrophic or surgically absent. Correlate with surgical history. No adnexal mass. Peritoneum: No free fluid. No pneumoperitoneum. Lymph nodes: No lymphadenopathy. Bones: Bilateral total knee arthroplasty. Degenerative changes in the spine, hips, and ankles. No destructive osseous lesion is identified. Body wall: Tiny fat-containing umbilical hernia. Otherwise unremarkable appearance of the body wall and remainder of the visualized soft tissues. IMPRESSION: 1. Peripheral artery disease in both lower extremities as detailed above. There is probable 2 vessel runoff into the right foot via the posterior tibial and peroneal arteries. There is three-vessel runoff into the left foot. 2. Right renal scarring. 3. Probable tiny left renal cyst. Colonic diverticulosis without evidence for acute diverticulitis. 4. Additional findings as described. Electronically signed by: Pao Trujillo MD 06/10/2020 11:12 PM [facility]
== END ==
LOC: CT 10:06
PROVIDERS: ATTEND Family Medicine
DX: I73.9 Peripheral vascular disease, unspecified (principal); N28.89 Other specified disorders of kidney and ureter; K57.30 Diverticulosis of large intestine without perforation or abscess without bleeding; Z96.651 Presence of right artificial knee joint; Z96.652 Presence of left artificial knee joint; I70.8 Atherosclerosis of other arteries; I70.0 Atherosclerosis of aorta; J98.11 Atelectasis

== ENCOUNTER → 2020-08-14 | Outpatient (CLI) | payer MEDICARE | LOC: YCFC.O 10:25 | PROVIDERS: ATTEND Family Medicine | DX: E11.9 Type 2 diabetes mellitus without complications (principal) ==